=== PATIENT | female | born 1965 | race Caucasian/White ===

== ENCOUNTER → 2018-03-22 12:17 | Outpatient (CLI) | payer OTHER, SELFPAY ==
--- NOTE | 2018-03-22 | DI.MG.S_ITS ---
BILATERAL DIGITAL SCREENING MAMMOGRAM 3D/2D WITH CAD: 03/22/2018 CLINICAL: Routine screening. Comparison is made to exams dated: 02/04/2017 mammogram, 02/02/2016 mammogram - [facility], and 09/09/2012 mammogram - [facility]. The tissue of both breasts is predominantly fatty. Current study was also evaluated with a Computer Aided Detection (CAD) system. There is a benign biopsy clip in the left breast. No significant masses, calcifications, or other findings are seen in either breast. There has been no significant interval change. IMPRESSION: NEGATIVE There is no mammographic evidence of malignancy. A 1 year screening mammogram is recommended. This exam was interpreted at Station ID: [id number]. NOTE: For mammograms, a report in lay terms will be sent to the patient. Approximately 15% of breast malignancies will not be visualized mammographically. In the management of a palpable breast mass, a negative mammogram must not discourage biopsy of a clinically suspicious lesion. Electronically Signed By: Clare geiger/vish:03/22/2018 13:19:01 letter sent: Normal Exam ACR BI-RADS Category 1: Negative 3341F
== END ==
PROVIDERS: Family Provider Registered Nurse Women's Health Care, Ambulatory; PCP Family Medicine; Visit Provider Family Medicine
DX: Z12.31 Encounter for screening mammogram for malignant neoplasm of breast (principal)
CPT/HCPCS: 77063; 77067

== ENCOUNTER → 2018-09-15 07:31 | Outpatient (CLI) | payer OTHER, SELFPAY ==
[2018-09-15 08:54] LABS: Cholesterol 169 mg/dL (140-199); Glucose 121 mg/dL (70-100); HDL Cholesterol 46 mg/dL (40-60); LDL Cholesterol Calculated 89 mg/dL (<100); Triglycerides 168 mg/dL (35-150)
== END ==
PROVIDERS: Family Provider Registered Nurse Women's Health Care, Ambulatory; PCP Family Medicine; Visit Provider Family Medicine
DX: Z00.00 Encounter for general adult medical examination without abnormal findings (principal)
CPT/HCPCS: 36415; 80061; 82947

== ENCOUNTER → 2018-09-24 09:46 | Outpatient (CLI) | payer OTHER, SELFPAY ==
[2018-09-24 10:15] LABS: Add Manual Diff / Slide Review NO; Basophils Absolute Auto 0 /uL (0-100); Basophils Percent Auto 0.6 % (0-2); Eosinophils Absolute Auto 100 /uL (0-450); Hemoglobin 13.5 g/dL (12.0-16.0); Lymphocytes Absolute Auto 1800 /uL (1100-4500); Lymphocytes Percent Auto 23.7 % (25-40); Mean Corpuscular HGB Conc 33.8 % (30-36); Mean Corpuscular Hemoglobin 28.5 PG (26-34); Mean Corpuscular Volume 84.2 fL (80-100); Monocytes Absolute Auto 500 /uL (0-900); Monocytes Percent Auto 6.3 % (3-14); Neutrophils Absolute Auto 5000 /uL (1500-7000); Neutrophils Percent Auto 67.4 % (50-75); Platelet Count 235 X10^3/uL (150-400); Red Blood Cell Count 4.75 X10^6/uL (4.0-5.2); Red Cell Distribution Width 14.2 % (11.6-14.8); White Blood Cell Count 7.4 X10^3/uL (4.5-11.0)
[2018-09-24 10:33] LABS: Hemoglobin A1C% w Est Avg Glu 5.9 % (4.0-6.0)
== END ==
PROVIDERS: PCP Family Medicine; Visit Provider Family Medicine
DX: R53.83 Other fatigue (principal); R73.09 Other abnormal glucose
CPT/HCPCS: 36415; 83036; 85025

== ENCOUNTER → 2018-10-29 13:22 | Outpatient (CLI) | payer OTHER, SELFPAY ==
--- NOTE | 2018-10-29 15:37 | DIET.PN ---
Nutrition Initial Assessment:? ASSESS:???53 yoF referred for type pre-diabetes and PCOS. Presents frustrated with weight loss results with diets she has tried. States she has tried Jazlyn Omid, Weight Watchers, and low carb plans. She is concerned with trying fad or restrictive diets because she has to feed her family and needs energy for her job. 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 Reports recent foot pain which has resulted in an inability to continue Sheryl. Reports strong family hx of diabetes and heart disease. She is very eager to lose weight and motivated to see improved lab results for her overall health. ? LABS: Per pt report:? A1c: 5.9 ? MEDS:?? n/a ? DIET: Per 24-hour recall:? Regularly eats on the go bc of work schedule. ? Weight: 265 lb Ht:? 66 in BMI: 42.7 ? Exercise:? none at this time. NUTRITION DX 1. Altered Nutrition related labs related to impaired glucose metabolism, lack of previous exposure to accurate nutrition information as evidenced by pt report, dx of pre-diabetes/PCOS, previous diet high in refined carbohydrates, lack of physical activity.? INTERVENTION(s): 1. Discussed pathophysiology of diabetes/hyperglycemia and impact of nutrition/diet on blood sugar control.? 2. Discussed the effect of carbohydrates/protein/fat on blood sugar control.? Stressed importance of consistent carbohydrate intake at each meal and provided instructions for recommended servings/portions of carbohydrates/protein per meal. Provided pt with educational material. 3. Reviewed carbohydrate counting and measuring carbohydrate content via servings sizes and reading nutrition labels.? Provided handouts.?? 4. Discussed the difference between simple versus complex carbohydrates and the effect of fiber on blood sugar control.? Discussed various methods to increase fiber content in diet. 5. Stressed importance of meal timing and not going >4-5 hours between meals. Encouraged adding protein to snacks to support glucose control and prevent hunger. Discussed various snack options. 6. Discussed importance of food preparation to encourage healthy eating, portion control, and prevent hunger/over snacking. Compiled a list of grab and go foods for breakfast and snack ideas. 7. Discussed healthy weight loss goals of 1-2lbs per week through diet and exercise.? Pt agreeable to keeping a daily food record including portions. Goals: 1. Pt would like to lose 15 lbs (~5%) body weight in the next 1-2 months through dietary changes. 2. Pt agreed to keep a food record to discuss with RD at follow up appt. MONITOR/EVALUATE: Anticipate excellent compliance.? Nutrition follow-up scheduled for 3 weeks to review food record, monitor weight, and discuss healthy smoothie recipes and physical activity plan. Pt is checking with insurance to check for authorized number of visits.
== END ==
PROVIDERS: PCP Family Medicine; Visit Provider Family Medicine
DX: R73.03 Prediabetes (principal); E28.2 Polycystic ovarian syndrome
CPT/HCPCS: 97802

== ENCOUNTER → 2018-11-19 10:06 | Outpatient (CLI) | payer OTHER, SELFPAY ==
--- NOTE | 2018-11-19 11:15 | DIET.PN ---
Dietary Progress Note Assessment: Pt seen for 1 mo nutrition follow up for pre-diabetes/PCOS. Frustration remains with lack of weight loss. Admits she did not follow dietary restrictions as strictly as she was in [place] on vacations. She has been working on limiting portion sizes and food prepping. She has also been working on incorporating new recipes and lisa to replace starchy food items. Pt biggest concern is controlling blood sugar and inability to lose weight. HT: 66in WT: 266lb (no change) BMI: 42.7 Labs: A1c: 5.9 Nutrition Diagnosis: Altered nutrition related labs r/t impaired glucose metabolism aeb pt report, dx of pre-diabetes/PCOS, previous diet high in carbs, lack of PA. Interventions: 1. Reviewed dietary recall. 2. Reviewed carb counting and measuring macronutrients via serving sizes/food labes. 3. Recommended pt purchase glucometer. Discussed recommended pre/post prandial values. 4. Provided a list of breakfast smoothie recipes as well as a grocery shopping list for healthful food items to keep on hand. Goals: 1. Pt would like to lose 15lbs (~5%) body weight in 1-2 months through dietary changes. 2. Pt will purchase a glucometer and monitor BG 2-3x/wk alternating fasting and post-prandial BG. Monitoring/Evaluations: Nutrition follow up scheduled for 5 weeks to review food record, monitor weight and blood glucose record. Pt checking with insurance to check for authorized time frame for number of visits.
== END ==
PROVIDERS: PCP Family Medicine; Visit Provider Family Medicine
DX: E11.9 Type 2 diabetes mellitus without complications (principal)
CPT/HCPCS: 97803

== ENCOUNTER → 2019-01-21 09:53 | Outpatient (CLI) | payer OTHER, SELFPAY ==
--- NOTE | 2019-01-21 14:26 | DIET.PN ---
Dietary Progress Note Assessment: Pt seen for 2nd nutrition follow up for pre-diabetes/PCOS. She is again, frustrated she has not lost much weight. States she has had company and was out of town for another vacation. She is not monitoring her BG, but reports a few high BP recently which she has never had. I asked her how aggressively she has been following recommendations provided at previous appointments. She brought with her a recipe book following the DASH diet for HTN and states she is starting to follow the recipes. Reports she is feeling more support from her and daughter in making dietary changes and accepting new recipes. Admits to eating fast food while on the go at work. She discussed her feelings toward beginning an exercise program, but understands the importance of physical activity. HT: 66in WT: 264 BMI: 42.6 Labs: 5.9 Nutrition Diagnosis: Altered nutrition related labs r/t impaired glucose metabolism aeb pt report, dx or pre-diabetes/PCOS, previous diet high in carbs, lack of PA. Interventions: 1. Reviewed set backs to meeting weight loss goals and making dietary changes. 2. Discussed importance of high fiber and meal prep to avoid over consumption at meal time and grabbing fast food when hungry. 3. Discussed barriers to PA. Provided list of fitness facilities and sources of activity to increase weight loss and promote overall emotional/physical wellbeing. Monitoring/Evaluations: Pt will make arrangements to join a fitness facility and get involved in group classes. She will continue to monitor carb intake as well as sodium and sat fat. F/U scheduled for 1 mo.
== END ==
PROVIDERS: PCP Family Medicine; Visit Provider Family Medicine
DX: E28.2 Polycystic ovarian syndrome (principal); R73.03 Prediabetes
CPT/HCPCS: 97803

== ENCOUNTER → 2019-02-17 12:11 | Outpatient (CLI) | payer OTHER, SELFPAY ==
[2019-02-17 12:46] LABS: Hemoglobin A1C% w Est Avg Glu 5.8 % (4.0-6.0)
[2019-02-17 12:49] LABS: Blood Urea Nitrogen 12 mg/dL (7-17); Calcium 9.8 mg/dL (8.4-10.2); Carbon Dioxide 25 mmol/L (22-32); Chloride 103 mmol/L (98-107); Estimated Glomerular Filt Rate > 60.0 mL/min (>60); Glucose 108 mg/dL (70-100); HEMOLYSIS < 15 (0-50); Sodium 140 mmol/L (137-145)
== END ==
PROVIDERS: PCP Family Medicine; Visit Provider Family Medicine
DX: R73.03 Prediabetes (principal)
CPT/HCPCS: 36415; 80048; 83036

== ENCOUNTER → 2019-02-23 10:27 | Outpatient (CLI) | payer OTHER, SELFPAY ==
--- NOTE | 2019-02-23 10:29 | DI.US.S_ITS ---
PROCEDURE: US RENAL COMPLETE INDICATIONS: LEFT FLANK PAIN TECHNIQUE: Real-time scanning was performed of the kidneys and bladder, with image documentation. COMPARISON: None. FINDINGS: Kidneys: Kidneys are normal in size. Right kidney measures 11.4 cm long; left kidney measures 11.4 cm long. Right renal cortical thickness is 1.6 cm; left renal cortical thickness is 1.5 cm. Renal cortical echotexture is normal. No hydronephrosis. Bilateral nonobstructing renal calcifications, largest of the right measured 3.5 mm and 6.7 mm on the left. No suspicious solid mass lesions. Bladder: Pre-void bladder volume is 298 mL. Post-void residual is 0 mL. Pre-void images demonstrate no intraluminal masses or stones. On pre-void images, bilateral ureteral jets are noted with color Doppler interrogation. (Of note, ureteral jets may not be detectable in up to 25% of cases due to insufficient differences in specific gravity between ureteral and bladder urine). Miscellaneous: No free pelvic fluid. IMPRESSION: Nonobstructing bilateral renal calcifications. Dictated by: Mono Goldstein [facility] Interpreted: Med Araiza MD on 02/23/2019 at 16:46 Approved by: Med Araiza M.D. on 02/23/2019 at 17:07
== END ==
PROVIDERS: PCP Family Medicine; Visit Provider Family Medicine
DX: R10.9 Unspecified abdominal pain (principal); N20.0 Calculus of kidney
CPT/HCPCS: 76770

== ENCOUNTER → 2019-02-25 09:49 | Outpatient (CLI) | payer OTHER, SELFPAY ==
--- NOTE | 2019-02-25 11:18 | DIET.PN ---
Dietary Progress Note Assessment: Mrs. Guevara is a 53 yof seen for 3rd nutrition follow up for pre-diabetes w/ PCOS. She presents very optimistic with dietary changes since our last visit. She has consistently followed the DASH diet with continued support from her and daughter. She has started keeping unsalted fruit and nut mixes in her car to curb her appetite between work clients and to avoid turning to fast food. Mrs Guevara was recently diagnosed with kidney stones which she reports hx of in her 20's and 30's. She remains positive in that she is caring for health more consistently in making an appt with a food cart attendant, her primary provider, and having several tests done as preventative measures. Her weight continues to fluctuate +/- 1-2 lbs at each visit which she believes is related to pre-menopause and PCOS. Discussed changes in physical activity which she has not yet committed to. HT: 66in WT: 266 BMI: 42.7 Labs: A1c: 5.8 (down from 5.9) Nutrition Diagnosis: Altered nutrition related lab values r/t impaired glucose metabolism aeb pt report, dx of pre-diabetes,PCOS, previous diet high in carb, lack of PA. Interventions: 1. Reviewed meal intake. Praised pt on her reduced A1c and commitment to dietary changes. 2. Discussed importance of water intake in continued improvement in lab values, weight management, and reduced hunger. Discussed minimum of 64 oz per day. 3. Encouraged pt to join a fitness to center with classes to increase chances of engaging in regular physical activity. Discussed local facilities and classes available. Set a goal to join a facility in the next 2 weeks. Pt agreeable. 4. Pt agreed to try smoothie recipes provided at previous appointment. Discussed benefits and tips to creating healthful breakfasts in minimal time. Monitoring/Evaluations: F/u scheduled for 2 mo to monitor weight, food record, and feelings toward new physical activity plan.
== END ==
PROVIDERS: PCP Family Medicine; Visit Provider Family Medicine
DX: R73.03 Prediabetes (principal); E28.2 Polycystic ovarian syndrome; E66.9 Obesity, unspecified; Z68.41 Body mass index [BMI] 40.0-44.9, adult; Z71.3 Dietary counseling and surveillance
CPT/HCPCS: 97803

== ENCOUNTER → 2019-03-02 15:55 | Outpatient (ROUT) | payer OTHER, SELFPAY ==
[2019-03-05 16:00] LABS: Fecal Immunochemical Test NOT DETECTED (NOT DETECTED)
== END ==
PROVIDERS: PCP Family Medicine; Visit Provider Family Medicine
DX: Z12.11 Encounter for screening for malignant neoplasm of colon (principal)
CPT/HCPCS: 82274

== ENCOUNTER → 2019-03-25 15:03 | Outpatient (CLI) | payer OTHER, SELFPAY ==
--- NOTE | 2019-03-25 | DI.MG.S_ITS ---
BILATERAL DIGITAL SCREENING MAMMOGRAM 3D/2D WITH CAD: 03/25/2019 CLINICAL: Routine screening. Comparison is made to exams dated: 03/22/2018 mammogram, 02/04/2017 mammogram, and 02/02/2016 [facility]ogram [facility]. The tissue of both breasts is predominantly fatty. Current study was also evaluated with a Computer Aided Detection (CAD) system. There is a biopsy clip in the left breast. No significant masses, calcifications, or other findings are seen in either breast. There has been no significant interval change. IMPRESSION: NEGATIVE There is no mammographic evidence of malignancy. A 1 year screening mammogram is recommended. This exam was interpreted at Station ID: [id number]. NOTE: For mammograms, a report in lay terms will be sent to the patient. Approximately 15% of breast malignancies will not be visualized mammographically. In the management of a palpable breast mass, a negative mammogram must not discourage biopsy of a clinically suspicious lesion. Electronically Signed By: Sammy anderson/vish:03/25/2019 16:22:37 letter sent: Normal Exam ACR BI-RADS Category 1: Negative 3341F
== END ==
PROVIDERS: PCP Family Medicine; Visit Provider Family Medicine
DX: Z12.31 Encounter for screening mammogram for malignant neoplasm of breast (principal)
CPT/HCPCS: 77063; 77067

== ENCOUNTER → 2019-04-26 10:48 | Outpatient (CLI) | payer OTHER, SELFPAY ==
--- NOTE | 2019-04-26 10:53 | DI.RAD.S_ITS ---
PROCEDURE: XR CHEST 2V INDICATIONS: Substernal chest pain, upper back pain TECHNIQUE: 2 views of the chest were acquired. COMPARISON: None. FINDINGS: Surgical changes and devices: None. Lungs and pleura: Lungs are clear. No pleural effusions or pneumothorax. Mediastinum: Mediastinal contours are normal. Heart size is normal. Bones and chest wall: No suspicious bony abnormalities. Soft tissues appear unremarkable. IMPRESSION: 1. No acute cardiopulmonary disease. Dictated by: Geo Govea M.D. on 04/26/2019 at 10:16 Approved by: Geo Govea M.D. on 04/26/2019 at 10:16
[2019-04-26 12:17] LABS: Add Manual Diff / Slide Review NO; Basophils Absolute Auto 0 /uL (0-100); Basophils Percent Auto 0.5 % (0-2); Eosinophils Absolute Auto 0 /uL (0-450); Eosinophils Percent Auto 0.1 % (2-4); Hematocrit 40.6 % (36-46); Hemoglobin 13.9 g/dL (12.0-16.0); Lymphocytes Absolute Auto 1400 /uL (1100-4500); Lymphocytes Percent Auto 13.8 % (25-40); Mean Corpuscular HGB Conc 34.1 % (30-36); Mean Corpuscular Hemoglobin 28.5 PG (26-34); Mean Corpuscular Volume 83.5 fL (80-100); Monocytes Absolute Auto 500 /uL (0-900); Monocytes Percent Auto 4.6 % (3-14); Neutrophils Absolute Auto 8000 /uL (1500-7000); Platelet Count 275 X10^3/uL (150-400); Red Blood Cell Count 4.87 X10^6/uL (4.0-5.2); Red Cell Distribution Width 14.4 % (11.6-14.8); White Blood Cell Count 9.8 X10^3/uL (4.5-11.0)
[2019-04-26 12:21] LABS: Alanine Aminotransferase 34 IU/L (<35); Albumin 4.7 g/dL (3.5-5.0); Albumin Globulin Ratio 1.5 (1.0-2.8); Alkaline Phosphatase 93 U/L (38-126); Aspartate Aminotransferase 34 IU/L (14-36); BUN Creatinine Ratio 14.3 (6-22); Bilirubin Total 0.6 mg/dL (0.2-1.3); Blood Urea Nitrogen 10 mg/dL (7-17); Calcium 9.7 mg/dL (8.4-10.2); Carbon Dioxide 28 mmol/L (22-32); Chloride 103 mmol/L (98-107); Creatine Kinase 52 U/L (30-135); Estimated Glomerular Filt Rate > 60.0 mL/min (>60); Globulin 3.2 g/dL (1.7-4.1); Glucose 123 mg/dL (70-100); HEMOLYSIS < 15 (0-50); Sodium 139 mmol/L (137-145); Total Protein 7.9 g/dL (6.3-8.2)
[2019-04-26 12:32] LABS: Troponin I < 0.012 ng/mL (0.01-0.034)
== END ==
PROVIDERS: PCP Family Medicine; Visit Provider Nurse Practitioner
DX: R07.9 Chest pain, unspecified (principal)
CPT/HCPCS: 36415; 71046; 80053; 82550; 84484; 85025

== ENCOUNTER → 2020-04-25 16:57 | Outpatient (CLI) | payer OTHER, SELFPAY ==
--- NOTE | 2020-04-25 16:59 | DI.MG.S_ITS ---
BILATERAL DIGITAL SCREENING MAMMOGRAM 3D/2D WITH CAD: 04/25/2020 CLINICAL: Routine screening. Comparison is made to exams dated: 03/25/2019 mammogram, 03/22/2018 mammogram, and 02/04/2017 mammogram - [facility]. The tissue of both breasts is predominantly fatty. Current study was also evaluated with a Computer Aided Detection (CAD) system. There is a biopsy clip in the left breast. No significant masses, calcifications, or other findings are seen in either breast. There has been no significant interval change. IMPRESSION: NEGATIVE There is no mammographic evidence of malignancy. A 1 year screening mammogram is recommended. This exam was interpreted at Station ID: [id number]. NOTE: For mammograms, a report in lay terms will be sent to the patient. Approximately 15% of breast malignancies will not be visualized mammographically. In the management of a palpable breast mass, a negative mammogram must not discourage biopsy of a clinically suspicious lesion. Electronically Signed By: Sammy anderson/vish:04/25/2020 17:52:51 letter sent: Normal Exam ACR BI-RADS Category 1: Negative 3341F
== END ==
PROVIDERS: PCP Family Medicine; Referring Provider Family Medicine; Visit Provider Family Medicine
DX: Z12.31 Encounter for screening mammogram for malignant neoplasm of breast (principal)
CPT/HCPCS: 77063; 77067

== ENCOUNTER → 2021-05-02 10:49 | Outpatient (CLI) | payer OTHER, SELFPAY ==
--- NOTE | 2021-05-02 10:51 | DI.MG.S_ITS ---
BILATERAL DIGITAL SCREENING MAMMOGRAM 3D/2D WITH CAD: 05/02/2021 CLINICAL: Routine screening. Comparison is made to exams dated: 04/25/2020 mammogram, 03/25/2019 mammogram, and 03/22/2018 mammogram - [facility]. There are scattered fibroglandular elements in both breasts. Current study was also evaluated with a Computer Aided Detection (CAD) system. There is a biopsy clip in the left breast. No significant masses, calcifications, or other findings are seen in either breast. There has been no significant interval change. IMPRESSION: NEGATIVE There is no mammographic evidence of malignancy. A 1 year screening mammogram is recommended. This exam was interpreted at Station ID: [id number]. NOTE: For mammograms, a report in lay terms will be sent to the patient. Approximately 15% of breast malignancies will not be visualized mammographically. In the management of a palpable breast mass, a negative mammogram must not discourage biopsy of a clinically suspicious lesion. Electronically Signed By: Geo marques/vish:05/02/2021 11:17:57 letter sent: Normal Exam ACR BI-RADS Category 1: Negative 3341F
== END ==
PROVIDERS: PCP Family Medicine; Referring Provider Family Medicine; Visit Provider Family Medicine
DX: Z12.31 Encounter for screening mammogram for malignant neoplasm of breast (principal)
CPT/HCPCS: 77063; 77067

== ENCOUNTER → 2022-05-09 10:10 | Outpatient (CLI) | payer OTHER, SELFPAY ==
--- NOTE | 2022-05-09 | DI.MG.S_ITS ---
BILATERAL DIGITAL SCREENING MAMMOGRAM 3D/2D WITH CAD: 05/09/2022 CLINICAL: Routine screening. Comparison is made to exams dated: 05/02/2021 mammogram, 04/25/2020 mammogram, and 03/25/2019 mammogram - [facility]. There are scattered areas of fibroglandular density in both breasts (category b / 25%-50% glandular tissue). Current study was also evaluated with a Computer Aided Detection (CAD) system. There is a biopsy clip in the left breast. No significant masses, calcifications, or other findings are seen in either breast. There has been no significant interval change. IMPRESSION: NEGATIVE There is no mammographic evidence of malignancy. A 1 year screening mammogram is recommended. Based on the Tyrer Cuzick model (a risk assessment model) the patient's lifetime risk is 10.8% and her 10 year risk is 3.5%. According to the ACR, ACS, and NCCN guidelines, an annual breast MRI exam along with mammogram is recommended if the patient's lifetime risk is 20% or greater. This exam was interpreted at Station ID: [id number]. NOTE: For mammograms, a report in lay terms will be sent to the patient. Approximately 15% of breast malignancies will not be visualized mammographically. In the management of a palpable breast mass, a negative mammogram must not discourage biopsy of a clinically suspicious lesion. Electronically Signed By: George Anderosn M.D., jr/vish:05/09/2022 13:07:43 letter sent: Normal Exam ACR BI-RADS Category 1: Negative 3341F
== END ==
PROVIDERS: PCP Family Medicine; Referring Provider Family Medicine; Visit Provider Family Medicine
DX: Z12.31 Encounter for screening mammogram for malignant neoplasm of breast (principal)
CPT/HCPCS: 77063; 77067

== ENCOUNTER → 2022-08-17 07:27 | Outpatient (CLI) | payer OTHER, SELFPAY ==
[2022-08-17 09:40] LABS: Alanine Aminotransferase 31 IU/L (<35); Albumin 3.6 g/dL (3.5-5.0); Albumin Globulin Ratio 0.9 (1.0-2.8); Alkaline Phosphatase 81 U/L (38-126); Aspartate Aminotransferase 27 IU/L (14-36); BUN Creatinine Ratio 16.7 (6-22); Bilirubin Total 0.4 mg/dL (0.2-1.3); Blood Urea Nitrogen 15 mg/dL (7-17); Calcium 8.9 mg/dL (8.4-10.2); Carbon Dioxide 26 mmol/L (22-32); Chloride 103 mmol/L (98-107); Cholesterol 157 mg/dL (140-199); Estimated Glomerular Filt Rate > 60 mL/min (>60); Globulin 3.8 g/dL (1.7-4.1); Glucose 123 mg/dL (70-100); HDL Cholesterol 34 mg/dL (40-60); HEMOLYSIS < 15 (0-50); LDL Cholesterol Calculated 84 mg/dL (<100); Potassium 4.4 mmol/L (3.4-5.1); Sodium 138 mmol/L (137-145); Total Protein 7.4 g/dL (6.3-8.2); Triglycerides 195 mg/dL (35-150)
[2022-08-18 06:09] LABS: Labcorp Hemoglobin (Hb) A1c 6.5 % (4.8-5.6)
== END ==
PROVIDERS: PCP Family Medicine; Referring Provider Family Medicine; Visit Provider Family Medicine
DX: R73.03 Prediabetes (principal); E78.5 Hyperlipidemia, unspecified
CPT/HCPCS: 36415; 80053; 80061; 83036

== ENCOUNTER → 2022-08-24 10:33 | Outpatient (CLI) | payer OTHER, SELFPAY ==
[2022-08-24 11:26] LABS: Add Manual Diff / Slide Review NO; Basophils Absolute Auto 0 /uL (0-100); Basophils Percent Auto 0.4 % (0-2); Eosinophils Absolute Auto 200 /uL (0-450); Eosinophils Percent Auto 2.8 % (2-4); Hematocrit 36.1 % (36-46); Hemoglobin 12.3 g/dL (12.0-16.0); Lymphocytes Absolute Auto 1600 /uL (1100-4500); Mean Corpuscular HGB Conc 34.1 % (30-36); Mean Corpuscular Volume 85.1 fL (80-100); Monocytes Absolute Auto 500 /uL (0-900); Monocytes Percent Auto 9.6 % (3-14); Neutrophils Absolute Auto 3300 /uL (1500-7000); Neutrophils Percent Auto 58.2 % (50-75); Platelet Count 202 X10^3/uL (150-400); Red Blood Cell Count 4.24 X10^6/uL (4.0-5.2); Red Cell Distribution Width 14.8 % (11.6-14.8); White Blood Cell Count 5.6 X10^3/uL (4.5-11.0)
[2022-08-24 12:12] LABS: TSH w/ Reflex to FT4 3.41 uIU/mL (0.47-4.68)
== END ==
PROVIDERS: PCP Family Medicine; Referring Provider Family Medicine; Visit Provider Family Medicine
DX: R42 Dizziness and giddiness (principal)
CPT/HCPCS: 36415; 84443; 85025

== ENCOUNTER 2022-10-09 13:08 | Day surgery (SDC) | payer OTHER, SELFPAY ==
--- NOTE | 2022-10-09 | PATH_ITS ---
[facility] Accession Number: [id number] No. of containers..02 Tissue . 01 Material submitted: . PART A: gastrointestinal site - GASTRIC BIOPSY PART B: esophagus, E-G Junction - GE JUNCTION . 01 Diagnosis: A. Gastric, Biopsy: Gastric mucosa with mild chronic inflammation and focal intestinal metaplasia. No Helicobacter pylori organisms identified on immunohistochemical evaluation. No dysplasia or malignancy. . B. GE Junction, Biopsy: Squamous mucosa with changes consistent with reflux. No fungal organisms identified on H/E slide. No dysplasia or malignancy identified. [facility] 10/15/2022 1134 Local . 01 Electronically signed: . Carrol Anderson MD, Pathologist NPI- [id number] . 01 Gross description: . Part A: GASTRIC BIOPSY: Received in formalin is 1 fragment(s) of nayak, soft tissue measuring 0.4 x 0.2 x 0.2 cm submitted entirely in 1 cassette(s) Part B: GE JUNCTION : Received in formalin is 1 fragment(s) of nayak, soft tissue measuring 0.2 x 0.1 x 0.1 cm submitted entirely in 1 cassette(s) /[facility] 10/10/2022 2309 Local . 01 Microscopic: . A. An immunohistochemical stain was performed to evaluate for Helicobacter organisms and is negative. The control stain showed appropriate reactivity. . . * This test was developed and its performance characteristics determined by [facility]. It has not been cleared or approved by the U.S. Food and Drug Administration. The FDA has determined that such clearance or approval is not necessary. This test is used for clinical purposes. It should not be regarded as investigational or for research. . 01 Pathologist provided ICD-10: K29.70, K21.00 . 01 CPT . 769564, 726891, [id number] Specimen Comment: A courtesy copy of this report has been sent to [phone] Performed at: 01 [facility] [address] [place] [address], [place], [place] [id number] MD Geo Patel MD Phone: [phone]
[2022-10-09] MEDS: LACTATED RINGERS 1,000 ML 200 ML IV (13:28)
[2022-10-09 13:46] VITALS: BP 137/78; PULSE 94; RESP 18; TEMP 37.1; O2SAT 96; BMI 43.9
--- NOTE | 2022-10-09 14:17 | PM.PREOP ---
Pre-operative Note Interval Note History & Physical reviewed/Exam performed by Physician: Yes Changes to H&P: No
--- NOTE | 2022-10-09 14:51 | PM.OP.EC ---
Operative Date/Time/Diagnoses Date of procedure: 10/09/22 Time of procedure: 14:51 Pre-op diagnosis: Esophageal dysphagia, colorectal screening Post-op diagnosis: other (Gastritis, esophagitis) Procedure & Clinicians Study performed: Esophagoduodenoscopy and colonoscopy Same procedure as scheduled: Yes Indications: 57-year-old woman with esophageal dysphagia here for diagnostic esophagoduodenoscopy and screening colonoscopy. Surgeon: Rickey Espinoza Procedure Notes Procedure in detail: The history and physical was performed/updated and the patient is ASA class is 3. The procedure was discussed in detail with the patient. Potential risks complications including infection, bleeding, missed diagnosis, perforation, need for surgery, and were explained. Their questions were answered and informed consent was obtained. Patient placed in left lateral decubitus position. Time out was performed. Procedural sedation was administered by Anesthesia. A bite block was placed. the scope was inserted into the mouth and advanced through the esophagus and into the stomach. The stomach was without masses. The antrum of the stomach was significant for linear ulcerations. Biopsy of the stomach was performed with forceps.. The pylorus was intubated and the duodenum was normal to the 2nd portion. The scope was retroflexed within the stomach and there was a small hiatal hernia. The scope was withdrawn into the esophagus the Z line was seen at 3 38 cm from the incisions. No tyler Grant's or esophageal stricture. The esophagus was mildly inflamed at its distal portion and biopsies were taken of the GE junction. Examination began with a thorough inspection of the perianal area there was no evidence of fissures, fistulae, external hemorrhoids or cutaneous malignancy. The colonoscopy scope was then placed into the anal canal and was advanced to the cecum, which was identified by the ileocecal valve, the appendiceal orifice and the confluence of the taenia. The scope was then slowly withdrawn examining colon thoroughly in all directions, irrigating it of any residual stool. Colon was without masses polyps. Retroflexion within the rectum demonstrated grade 1 internal hemorrhoids not large enough for hemorrhoidal banding The patient tolerated the procedure well. They will be discharged once criteria are met. The prep was of good/excellent quality. The withdrawl time was 6 minutes. Specimen(s): other (GE junction, gastric) Impression: Gastritis, esophagitis Post-procedure Recommendations: Colonscopy in 10 years Plan for aftercare: Omeprazole 20 mg twice daily. Discontinue Prilosec. Will notify with biopsy findings. Disposition: same day surgery
[2022-10-09 14:54] VITALS: BP 113/74; PULSE 78; RESP 20; TEMP 36.2; O2SAT 95
[2022-10-09 14:59] VITALS: BP 111/70; PULSE 87; RESP 19; O2SAT 97
[2022-10-09 15:05] VITALS: BP 112/70; PULSE 82; RESP 16; O2SAT 97
[2022-10-09 15:09] VITALS: BP 113/70; PULSE 70; RESP 15; O2SAT 96
== END 2022-10-09 15:36 | disposition home or self-care (01) ==
PROVIDERS: PCP Family Medicine; Referring Provider Surgery; Visit Provider Surgery
PROC: 0DJ08ZZ Inspection of Upper Intestinal Tract, Via Natural or Artificial Opening Endoscopic (ICD-10-PCS; CPT 43235; principal; 2022-10-09 14:30)
PROC: 0DJD8ZZ Inspection of Lower Intestinal Tract, Via Natural or Artificial Opening Endoscopic (ICD-10-PCS; CPT 45378; 2022-10-09 14:30)
DX: Z12.11 Encounter for screening for malignant neoplasm of colon (principal); K21.00 Gastro-esophageal reflux disease with esophagitis, without bleeding; E11.9 Type 2 diabetes mellitus without complications; Z79.84 Long term (current) use of oral hypoglycemic drugs; K64.0 First degree hemorrhoids; K44.9 Diaphragmatic hernia without obstruction or gangrene; K29.50 Unspecified chronic gastritis without bleeding
CPT/HCPCS: 45378; 43239; J2704

== ENCOUNTER → 2022-10-11 09:32 | Outpatient (CLI) | payer OTHER, SELFPAY | PROVIDERS: PCP Family Medicine; Referring Provider Family Medicine; Visit Provider Family Medicine | DX: R00.2 Palpitations (principal); M54.9 Dorsalgia, unspecified | CPT/HCPCS: 87086; 93246 ==

== ENCOUNTER → 2022-10-11 15:06 | Outpatient (CLI) | payer OTHER, SELFPAY | PROVIDERS: PCP Family Medicine; Visit Provider Nurse Practitioner Family | DX: M54.9 Dorsalgia, unspecified (principal) | CPT/HCPCS: 87086 ==

== ENCOUNTER → 2022-11-15 12:23 | Outpatient (CLI) | payer OTHER, SELFPAY ==
[2022-11-15 16:17] LABS: Creatinine Urine Random 177.1 mg/dL
[2022-11-15 16:22] LABS: Microalbumi Creatinin Ratio Ur 6.7 ug/mg CR (<30); Microalbumin Urine Random 1.2 mg/dL (0-1.6)
[2022-11-16 06:35] LABS: Labcorp Hemoglobin (Hb) A1c 6.6 % (4.8-5.6)
== END ==
PROVIDERS: PCP Family Medicine; Referring Provider Family Medicine; Visit Provider Family Medicine
DX: E11.9 Type 2 diabetes mellitus without complications (principal); I10 Essential (primary) hypertension
CPT/HCPCS: 36415; 82043; 82570; 83036

== ENCOUNTER → 2022-12-03 07:42 | Outpatient (CLI) | payer OTHER, SELFPAY ==
--- NOTE | 2022-12-03 07:43 | DI.US.S_ITS ---
PROCEDURE: US PELVIC COMPLETE INDICATIONS: LOWER ABDOMINAL PAIN TECHNIQUE: Real-time scanning was performed of the pelvic organs, with image documentation. Additional endovaginal scanning was necessary due to incomplete visualization of the adnexal and endometrial structures by transabdominal scanning. COMPARISON: None. FINDINGS: Uterus: Uterus is anteverted and normal in size at 7.0 x 3.4 x 4.9 cm. The myometrium is homogeneous. The endometrium measures 3.4 mm combined thickness. Ovaries: The right ovary measures 1.4 x 1.2 x 1.5 cm, with a calculated ovarian volume of 1 cc. The left ovary measures 2.0 x 1.5 x 1.9 cm, with a calculated ovarian volume of 3 cc. The ovaries have a normal sonographic appearance. Less than 12 follicles can be seen in each ovary. No adnexal masses are seen. Other: No pathologic free abdominal or pelvic fluid. IMPRESSION: Endometrial stripe measures 3.4 millimeters, within normal limits for age. Otherwise, no abnormality. We strive to produce accurate, complete, and clear reports of imaging services. To assist us in improving patient care, this report was composed using standard report templates and voice recognition software. Therefore, it may contain abnormal punctuation, insertions and/or omissions. Occasional wrong-word or sound-alike substitutions may occur. Though we review the report and make efforts to correct it, we do recommend that the report be read carefully in proper context to recognize any text inaccuracies. Dictated by: Kirk Anne M.D. on 12/03/2022 at 9:12 Approved by: Kirk Anne M.D. on 12/03/2022 at 9:15
== END ==
PROVIDERS: PCP Family Medicine; Referring Provider Family Medicine; Visit Provider Family Medicine
DX: R10.30 Lower abdominal pain, unspecified (principal)
CPT/HCPCS: 76830; 76856; 93975

== ENCOUNTER → 2023-03-28 14:13 | Outpatient (CLI) | payer OTHER, SELFPAY ==
--- NOTE | 2023-03-28 14:17 | DI.RAD.S_ITS ---
PROCEDURE: XR CHEST 2V INDICATIONS: Shortness of breath TECHNIQUE: 2 views of the chest were acquired. COMPARISON: [facility], CR, XR CHEST 2V, 04/26/2019, 10:50. FINDINGS: Surgical changes and devices: None. Lungs and pleura: Lungs are clear. No pleural effusions or pneumothorax. Mediastinum: Mediastinal contours are normal. Heart size is normal. Bones and chest wall: No suspicious bony abnormalities. Soft tissues appear unremarkable. IMPRESSION: No acute cardiopulmonary abnormality is seen. Dictated by: Shoshana Reynolds MD, PhD on 03/28/2023 at 14:36 Approved by: Shoshana Reynolds MD, PhD on 03/28/2023 at 14:39
== END ==
PROVIDERS: PCP Family Medicine; Referring Provider Nurse Practitioner Family; Visit Provider Nurse Practitioner Family
DX: R06.02 Shortness of breath (principal)
CPT/HCPCS: 71046

== ENCOUNTER → 2023-04-10 15:16 | Outpatient (CLI) | payer OTHER, SELFPAY ==
--- NOTE | 2023-04-10 15:28 | DI.RAD.S_ITS ---
PROCEDURE: XR HIP W PEL IF DONE BILAT 2V INDICATIONS: hip pain TECHNIQUE: AP pelvis with lateral view(s) of the bilateral hip(s). COMPARISON: [facility], , [id number] W PEL IF PERFORMED, 08/22/2015, 16:21. FINDINGS: Bones: No acute fracture or dislocation. Mild, bilateral, left slightly worse than right, femoroacetabular joint space loss. Slight left-sided acetabular spurring. No suspicious bone lesions. Soft tissues: The visualized bowel gas pattern is normal. No suspicious soft tissue calcifications. IMPRESSION: 1. Mildly asymmetric, left greater than right mild arthritic changes in the hip joints. Dictated by: Jing Vazquez M.D. on 04/10/2023 at 17:46 Approved by: Jing Vazquez M.D. on 04/10/2023 at 17:47
== END ==
PROVIDERS: PCP Family Medicine; Referring Provider Family Medicine; Visit Provider Family Medicine
DX: M25.551 Pain in right hip (principal); M25.552 Pain in left hip
CPT/HCPCS: 73521

== ENCOUNTER 2023-04-29 12:16 | Emergency (ER) | payer OTHER, SELFPAY ==
[2023-04-29] VITALS (26 sets, daily range): BP systolic 132–186; BP diastolic 60–91; PULSE 79–110; RESP 16–25; TEMP 36.3–36.9; O2SAT 91–97; BMI 44.5
--- NOTE | 2023-04-29 13:04 | ED.SOB ---
HPI - SOB/Dyspnea General Chief Complaint: Shortness of Breath/Dyspnea Stated Complaint: trouble walking, sob; dr referred Time Seen by Provider: 04/29/23 12:41 Source: patient Mode of arrival: Ambulatory History of Present Illness HPI Narrative: Patient with underlying bilateral hip pain over the past 6-8 weeks gradually worsening comes to the ED because of her concern of associated shortness of breath which has developed over the past 2 or 3 weeks. She notes fairly dramatic breathlessness and some chest tightness with only modest exertion. She says climbing a flight of stairs or walking any distance at an airport causes profound dyspnea to the point where she had to use a wheelchair recently at an airport. She does not feel particularly breathless when she is not exerting herself. This degree of dyspnea with exertion his profoundly different from her experience of her past years. She has no known coronary disease but her father had early coronary disease. She has no known pulmonary disease but her mother had pulmonary hypertension. Both parents are . She does not smoke cigarettes nor does she drink alcohol frequently. She has no infectious symptoms though about 4 weeks ago she had a profound event lasting about 10-60 minutes where she had a wave of pain or flushing which started at the top of her head and went all the way down to her toes and caused significant headache and panic and vomiting. She says she is had 4 or so additional episodes throughout her life but these are very unusual events. She has seen her primary care doctor for these symptoms who has ordered plain images of the hips. Also echocardiography and stress test are in the plans moving forward. She is feeling very anxious about the symptoms and is concerned that they may represent an imminently dangerous condition perhaps associated with her hip pain. She has no specific arthritis diagnosis. She has no trauma associated with the increasing hip pain. Related Data Previous Rx's Medication Instructions Recorded nitroglycerin 0.4 % (w/w) rectal 1 inch IN BID #30 grams 09/19/18 ointment albuterol sulfate 90 mcg/actuation 2 puff inhalation Q6H PRN 09/28/19 aerosol inhaler (ProAir HFA) shortness of breath or wheezing #8.5 grams levocetirizine 5 mg tablet See Rx Instructions .Route 08/24/22 .COMPLEX #90 tabs escitalopram oxalate 10 mg tablet See Rx Instructions .Route 07/12/23 .COMPLEX #90 tabs lorazepam 0.5 mg tablet 0.5 mg PO BID PRN anxiety #30 tabs 11/21/22 metformin 1,000 mg tablet 1,000 mg PO BID #180 tabs 11/21/22 omeprazole 20 mg capsule,delayed 20 mg PO DAILY #90 caps 11/21/22 release Allergies Allergy/AdvReac Type Severity Reaction Status Date / Time No Known Drug Allergies Allergy Verified 04/29/23 12:19 Patient History Medical History Pre-diabetes Type 2 diabetes mellitus Surgical History History of tonsillectomy Family History Father Heart disease Grandfather Stroke Mother Hypertension Pulmonary hypertension Grandfather Cancer Grandmother Cancer Social History household members: spouse Smoking Status: Never smoker alcohol intake: current Smoking Status: Never smoker alcohol intake frequency: a few times a week Substance Use Type: does not use Exam Narrative Exam Narrative: GENERAL: Alert, cooperative and in no distress. HEAD: Atraumatic. Normocephalic. EYES: Sclera are clear without icterus. Extraocular movements are full. ENT: No rhinorrhea. Oropharynx is moist. Mouth exam is benign. NECK: Supple. Full range of motion. CARDIOVASCULAR: Elevated rate and rhythm without murmur gallop or rub. RESPIRATORY: Clear to auscultation. Breath sounds equal bilaterally. No wheezes, rales, or rhonchi. GASTROINTESTINAL: Abdomen soft, non-tender, nondistended. EXTREMITIES: No edema, full range of motion. No obvious trauma. Full range of motion of the hips and knees without pain. BACK: Normal inspection, no CVA tenderness. NEURO: Nonfocal examination, normal speech SKIN: No rash or erythema of visible areas PSYCH: Normally oriented. Normal range of affect. Appropriate behavior Initial Vital Signs Initial Vital Signs: Vital Signs Temperature 97.3 F L 04/29/23 12:19 Pulse Rate 95 H 04/29/23 12:19 Respiratory Rate 20 04/29/23 12:19 Blood Pressure 186/91 H 04/29/23 12:19 Pulse Oximetry 96 04/29/23 12:19 Oxygen Delivery Method Room Air 04/29/23 12:19 Course Orders Ordered: ED Orders 04/29/23 13:09 EKG-12 Lead Stat 04/29/23 13:25 BNP [NT-proBNP (BNP-Adult 18+)] Stat CMP [Comprehensive Metabolic Panel] Stat CRP [C-Reactive Protein Quant] Stat Procalcitonin Stat Troponin I Stat 04/29/23 14:00 CBC Auto Diff [Complete Blood Count AUTO DIFF] Stat D Dimer Stat Packed Cells Stat Type and Screen Stat 04/29/23 14:23 CT angio chest PE protocol Stat 04/29/23 14:24 CT abdomen pelvis w con Stat 04/29/23 15:10 Urine Microscopic Stat Discontinued Medications Ondansetron HCl (Ondansetron 4 Mg/2 Ml Inj) 4 mg IV NOW ONE Stop: 04/29/23 15:11 Last Admin: 04/29/23 15:13 Dose: 4 mg Documented By: MIKE Vital Signs Vital signs: Vital Signs - 8 hr 04/29/23 12:19 04/29/23 12:37 04/29/23 13:00 Temperature 97.3 F L Pulse Rate 95 H 98 H 91 H Respiratory Rate 20 24 Blood Pressure 186/91 H Pulse Oximetry 96 95 Oxygen Delivery Method Room Air 04/29/23 13:14 04/29/23 13:14 04/29/23 13:30 Temperature Pulse Rate 86 Respiratory Rate 21 Blood Pressure 146/75 H 156/76 H Pulse Oximetry 96 Oxygen Delivery Method 04/29/23 13:30 04/29/23 14:00 04/29/23 14:00 Temperature Pulse Rate 84 83 Respiratory Rate 19 16 Blood Pressure 148/78 H Pulse Oximetry 95 96 Oxygen Delivery Method Room Air 04/29/23 14:30 04/29/23 14:30 04/29/23 15:00 Temperature Pulse Rate 91 H 110 H Respiratory Rate 25 H Blood Pressure 158/75 H Pulse Oximetry 97 Oxygen Delivery Method 04/29/23 15:30 04/29/23 15:34 04/29/23 15:34 Temperature Pulse Rate 82 84 Respiratory Rate 19 24 Blood Pressure 156/70 H Pulse Oximetry 93 95 Oxygen Delivery Method 04/29/23 15:49 04/29/23 16:09 Temperature 98.2 F 98.0 F Pulse Rate 86 84 Respiratory Rate 18 18 Blood Pressure 149/83 H 132/60 Pulse Oximetry Oxygen Delivery Method MDM - SOB/Dyspnea Lab Data 04/29/23 14:00 04/29/23 13:25 Labs: Lab Results 04/29/23 04/29/23 04/29/23 Range/Units 13:25 14:00 15:10 WBC 4.6 (4.5-11.0) X10^3/uL RBC 2.06 L (4.0-5.2) X10^6/uL Hgb 6.1 L* (12.0-16.0) g/dL Hct 18.2 L* (36-46) % MCV 88.4 (80-100) fL MCH 29.7 (26-34) PG MCHC 33.6 (30-36) % RDW 22.9 H (11.6-14.8) % Plt Count 111 L (150-400) X10^3/uL Neut % (Auto) 55.0 (50-75) % Lymph % (Auto) 35.9 (25-40) % Barber % (Auto) 7.2 (3-14) % Eos % (Auto) 1.5 L (2-4) % Baso % (Auto) 0.4 (0-2) % Neut # (Auto) 2500 (7787-6939) /uL Lymph # (Auto) 1700 (5173-7494) /uL Barber # (Auto) 300 (0-900) /uL Eos # (Auto) 100 (0-450) /uL Baso # (Auto) 0 (0-100) /uL Platelet Estimate Decreased on smear RBC Morphology See below Anisocytosis 2+ H Microcytosis 2+ H Macrocytosis 1+ H D-Dimer 794 H (<500) ng/ml Sodium 138 (137-145) mmol/L Potassium 4.3 (3.4-5.1) mmol/L Chloride 102 (98-107) mmol/L Carbon Dioxide 23 (22-32) mmol/L BUN 16 (7-17) mg/dL Creatinine 1.32 H (0.52-1.04) mg/dL Estimated GFR 47 L (>60) mL/min BUN/Creatinine Ratio 12.1 (6-22) Glucose 149 H (70-100) mg/dL Calcium 10.8 H (8.4-10.2) mg/dL Total Bilirubin 0.7 (0.2-1.3) mg/dL AST 115 H (14-36) IU/L ALT 197 H (<35) IU/L Alkaline Phosphatase 80 (38-126) U/L Troponin I < 0.012 (0.01-0.034) ng/mL C-Reactive Protein 1.4 H (<1.0) mg/dL NT-Pro-B Natriuret Pep 3000 H (<125) pg/mL Total Protein 10.9 H (6.3-8.2) g/dL Albumin 3.5 (3.5-5.0) g/dL Globulin 7.4 H (1.7-4.1) g/dL Albumin/Globulin Ratio 0.5 L (1.0-2.8) Procalcitonin 0.19 (<0.5) ng/mL Urine RBC 0-1/hpf (0-5/HPF) Urine WBC 0-1/hpf (0-5/HPF) Ur Squamous Epith Cells 0-1 /hpf (0-5/HPF) Urine Bacteria None seen (None) Hyaline Casts 0-1/lpf (None) Ur Culture Indicated? Cult not indicated Blood Type O Positive Antibody Screen Negative Crossmatch See Detail Urine Dip Bedside Urine Glucose Negative Bedside Urine Bilirubin - Negative Bedside Urine Ketone - Negative Urine Specific [place] 1.025 Bedside Urine Occult Blood - Negative Bedside Urine pH 6.0 Bedside Urine Protein ++ 100 Bedside Urine Urobilinogen - Negative Bedside Urine Nitrite - Negative Bedside Urine Leukocytes - Negative Esterase ECG Data Interpretation: ECG obtained at 1323 shows sinus rhythm at 89 beats per minute. QTC is 430. This ECG is normal. [facility] Narrative Medical decision making narrative: Patient with a unusual presentation of 6 or more weeks of increasing hip pain with negative x-rays. No trauma history also coincident with 2 or 3 weeks of worsening shortness of breath with exertion. Much more so recently. Vague chest pressure with the dyspnea but at other times no chest pain per se. She does not smoke cigarettes or have hypertension but she does have diabetes and an early family history of coronary disease and also family history of pulmonary disease. She has elevated blood pressure here today. My suspicion for pulmonary embolism is low but I will check a D-dimer to corroborate this suspicion. We will do chest imaging pending the D-dimer result. I do not think new hip imaging is warranted at the moment. We will also check inflammatory markers. We will also check cardiac markers as well and evidence of congestive heart failure by checking a BNP. Clinically she is not volume overloaded. She does have a resting heart rate in the 90s which to me seems abnormal as well. 1433 H&H are very low. Fortunately, she had a recent colonoscopy within the past 5 or 6 months which was reassuring. Platelet count is slightly depressed but she has normal white cells. Liver function tests are slightly abnormal. D-dimer is elevated, BNP is elevated. We will do chest abdomen pelvis CT looking for bleeding source or other neoplastic etiology or pulmonary emboli. Pulmonary emboli of course would not explain the severe anemia but given the elevated D-dimer and breathlessness I want to be thorough about this. Did do a rectal exam just now which is scant brown stool that is faintly guaiac positive. I did review her history with her and she is no longer menstruating. She has had no hematemesis or hematuria or hematochezia that she is aware of. 1614 2 units of red cells are being transfused. I think it is very likely that the blood loss is the cause of the vast majority of her symptoms. We will discuss the case with Dr. Jackson about outpatient follow-up from this point forward. After transfusion of 2 units will discharge the patient home for close outpatient follow-up. Discharge Plan Departure Patient Disposition: Home Clinical Impression: Severe anemia Activity Restrictions/Additional Instructions: The severe anemia you are suffering from that we discovered is almost certainly the cause of the majority of the symptoms you have been experiencing. Further investigation may be required to make sure of this. You also will need further investigation to discover the source of your blood loss. It is very reassuring that you had normal upper endoscopy and colonoscopy recently. Follow-up with Dr. Jackson in the coming days for ongoing evaluation. Please return to the ED for severe symptoms such as repeated vomiting. Obvious blood loss. High fever or severe pain. Thank you for trusting us with your care today and I hope you feel better soon. Prescriptions: No Action nitroglycerin 0.4 % (w/w) ointment 1 inch IN BID Qty: 30 2RF levocetirizine 5 mg tablet See Rx Instructions .ROUTE .COMPLEX Qty: 90 2RF Dose Instruction: TAKE 1 TABLET BY MOUTH DAILY Rx Instructions: TAKE 1 TABLET BY MOUTH DAILY omeprazole 20 mg capsule,delayed release(DR/EC) 20 mg PO DAILY Qty: 90 3RF escitalopram oxalate 10 mg tablet See Rx Instructions .ROUTE .COMPLEX Qty: 90 3RF Dose Instruction: TAKE 1 AND 1/2 TABLETS BY MOUTH EVERY DAY Rx Instructions: TAKE 1 Tab daily lorazepam 0.5 mg tablet 0.5 mg PO BID PRN (Reason: anxiety) Qty: 30 0RF metformin 1,000 mg tablet 1,000 mg PO BID Qty: 180 3RF albuterol sulfate [ProAir HFA] 90 mcg/actuation HFA aerosol inhaler 2 puff INHALATION Q6H PRN (Reason: shortness of breath or wheezing) Qty: 8.5 0RF Referrals: Karen Jackson MD [Primary Care Provider] - Stand Alone Forms: Patient Portal/API
[2023-04-29 13:49] LABS: Alanine Aminotransferase 197 IU/L (<35); Albumin 3.5 g/dL (3.5-5.0); Albumin Globulin Ratio 0.5 (1.0-2.8); Alkaline Phosphatase 80 U/L (38-126); Aspartate Aminotransferase 115 IU/L (14-36); BUN Creatinine Ratio 12.1 (6-22); Bilirubin Total 0.7 mg/dL (0.2-1.3); Blood Urea Nitrogen 16 mg/dL (7-17); C-Reactive Protein Quant 1.4 mg/dL (<1.0); Calcium 10.8 mg/dL (8.4-10.2); Carbon Dioxide 23 mmol/L (22-32); Chloride 102 mmol/L (98-107); Estimated Glomerular Filt Rate 47 mL/min (>60); Globulin 7.4 g/dL (1.7-4.1); Glucose 149 mg/dL (70-100); HEMOLYSIS < 15 (0-50); Potassium 4.3 mmol/L (3.4-5.1); Sodium 138 mmol/L (137-145); Total Protein 10.9 g/dL (6.3-8.2)
[2023-04-29 13:59] LABS: NT-proBNP (BNP-Adult 18+) 3000 pg/mL (<125); Troponin I < 0.012 ng/mL (0.01-0.034)
[2023-04-29 14:04] LABS: Procalcitonin 0.19 ng/mL (<0.5)
[2023-04-29 14:16] LABS: Add Manual Diff / Slide Review NO; Basophils Absolute Auto 0 /uL (0-100); Basophils Percent Auto 0.4 % (0-2); Eosinophils Absolute Auto 100 /uL (0-450); Eosinophils Percent Auto 1.5 % (2-4); Hematocrit 18.2 % (36-46); Lymphocytes Absolute Auto 1700 /uL (1100-4500); Lymphocytes Percent Auto 35.9 % (25-40); Mean Corpuscular HGB Conc 33.6 % (30-36); Mean Corpuscular Hemoglobin 29.7 PG (26-34); Mean Corpuscular Volume 88.4 fL (80-100); Monocytes Absolute Auto 300 /uL (0-900); Monocytes Percent Auto 7.2 % (3-14); Neutrophils Absolute Auto 2500 /uL (1500-7000); Platelet Count 111 X10^3/uL (150-400); Red Blood Cell Count 2.06 X10^6/uL (4.0-5.2); Red Cell Distribution Width 22.9 % (11.6-14.8); White Blood Cell Count 4.6 X10^3/uL (4.5-11.0)
[2023-04-29 14:17] LABS: D Dimer 794 ng/ml (<500)
[2023-04-29 14:18] LABS: Hemoglobin 6.1 g/dL (12.0-16.0)
--- NOTE | 2023-04-29 14:23 | DI.CT.S_ITS ---
PROCEDURE: CT ANGIO CHEST PE PROTOCOL INDICATIONS: dyspnea TECHNIQUE: After the administration of intravenous contrast, 2 mm thick sections acquired from the pulmonary apices to the posterior costophrenic angles. 3-dimensional maximum intensity projection (MIP) coronal and sagittal reformats were then acquired through the thorax. For radiation dose reduction, the following was used: automated exposure control, adjustment of mA and/or kV according to patient size. COMPARISON: None. FINDINGS: Image quality: Diagnostic. Pulmonary arteries: Pulmonary arteries are normal in size, and demonstrate no intraluminal filling defects to suggest central pulmonary embolism. The main pulmonary artery is at the upper limits of normal measuring 2.9 centimeters. Lungs and pleura: Lungs are clear. Mild linear atelectasis versus scarring at the bases. No pleural effusions or pneumothorax. Central and peripheral airways are patent. Mediastinum: Heart size is normal, without pericardial effusion. Prominent mediastinal and hilar lymph nodes are nonspecific. Thoracic aorta is normal in caliber and enhancement with minimal atherosclerosis. Esophagus is normal in caliber, with small hiatal hernia. Bones and chest wall: No suspicious bony lesions. Chronic appearing left lateral 3rd rib fracture. Ribs and thoracic spine appear intact throughout. No axillary or supraclavicular adenopathy. No thyroid nodules which require sonographic follow up, per consensus guidelines. Upper Abdomen: Please see separately dictated CT of the abdomen and pelvis. IMPRESSION: No pulmonary embolus. No acute cardiopulmonary process. Prominent mediastinal and hilar lymph nodes are nonspecific and may be reactive. Dictated by: Ruben Olson M.D. on 04/29/2023 at 15:35 Approved by: Ruben Olson M.D. on 04/29/2023 at 15:41
--- NOTE | 2023-04-29 14:24 | DI.CT.S_ITS ---
PROCEDURE: CT ABDOMEN PELVIS W CON INDICATIONS: severe anemia TECHNIQUE: After the administration of intravenous contrast, axial sections acquired from the lung bases to the pubic symphysis. Coronal and sagittal reformats were performed. For radiation dose reduction, the following was used: automated exposure control, adjustment of mA and/or kV according to patient size. COMPARISON: None. FINDINGS: Image quality: Excellent. Lung bases: Please refer to separately dictated CT of the chest from the same day. ABDOMEN: Liver: Unremarkable. Gallbladder: Unremarkable. Biliary ducts: Unremarkable. Pancreas: Unremarkable. Spleen: Unremarkable. Adrenal Glands: Unremarkable. Kidneys and Ureters: Unremarkable. Stomach and Bowel: Stomach, small bowel loops, and colon are unremarkable. Few colonic diverticula without evidence of diverticulitis. Normal appendix. Peritoneum: No abnormal intraperitoneal fluid. No free air. Ventral Wall: No hernias. Abdominal Nodes: No retroperitoneal or mesenteric adenopathy by size criteria. Vessels: Aorta and inferior vena cava are normal in size. Mild atherosclerosis. PELVIS: Pelvic Organs: Unremarkable. Bladder: Unremarkable. Pelvic Nodes: No enlarged lymph nodes. Miscellaneous: No hernias are seen. Bones: Mild degenerative changes of the spine. IMPRESSION: 1. No acute findings within the abdomen or pelvis. 2. Diverticulosis without evidence of acute diverticulitis. Dictated by: Ruben Olson M.D. on 04/29/2023 at 15:41 Approved by: Ruben Olson M.D. on 04/29/2023 at 15:45
[2023-04-29 14:53] LABS: Anisocytosis 2+; Macrocytosis 1+; Microcytosis 2+; Platelet Estimate Decreased on smear
[2023-04-29] MEDS: ONDANSETRON 4 MG/2 ML INJ IV ×2 (15:13→18:37)
[2023-04-29 15:48] LABS: Bacteria Urine None Seen; Culture Indicated Urine Cult Not Indicated; Hyaline Casts Urine 0-1/LPF; RBC Urine 0-1/HPF (0-5/HPF); Squamous Epithelial Cell Urine 0-1 /HPF (0-5/HPF); WBC Urine 0-1/HPF (0-5/HPF)
[2023-04-29] MEDS: diphenhydrAMINE 50 MG/ML VIAL 25 MG IV (18:13)
[2023-04-29] MEDS: ACETAMINOPHEN 325 MG TABLET 975 MG PO (18:13)
--- NOTE | 2023-04-29 18:20 | PC.NURSE ---
Around 1808 pt began complaining of left sided flank pain. Blood transfusion paused, Dr. Padilla and Dr. Cain made aware. tylenol and benadryl given at 1813. Will re assess at 1830 to restart blood if pain is improved per Dr. Padilla.
[2023-04-29] MEDS: FUROSEMIDE 40 MG/4 ML VIAL IV (20:00)
== END 2023-04-29 20:41 | disposition home or self-care (01) ==
PROVIDERS: Emergency Provider Family Medicine Addiction Medicine; PCP Family Medicine
DX: D64.9 Anemia, unspecified (principal); R06.00 Dyspnea, unspecified; R07.9 Chest pain, unspecified; M25.552 Pain in left hip; M25.551 Pain in right hip; Z79.899 Other long term (current) drug therapy
CPT/HCPCS: 36415; 36430; 71275; 74177; 80053; 81003; 81015; 83880; 84145; 84484; 85025; 85379; 86140; 86850; 86900; 86901; 93005; 93010; 96374; 96375; 99285; P9016; J1200; J1940; J2405; Q9967

== ENCOUNTER → 2023-05-01 08:48 | Outpatient (CLI) | payer OTHER, SELFPAY ==
[2023-05-01 10:29] LABS: Add Manual Diff / Slide Review NO; Basophils Absolute Auto 0 /uL (0-100); Basophils Percent Auto 0.2 % (0-2); Eosinophils Absolute Auto 100 /uL (0-450); Eosinophils Percent Auto 2.2 % (2-4); Hematocrit 24.9 % (36-46); Hemoglobin 8.5 g/dL (12.0-16.0); Lymphocytes Absolute Auto 600 /uL (1100-4500); Mean Corpuscular HGB Conc 34.2 % (30-36); Mean Corpuscular Hemoglobin 29.9 PG (26-34); Mean Corpuscular Volume 87.3 fL (80-100); Monocytes Absolute Auto 300 /uL (0-900); Neutrophils Absolute Auto 2000 /uL (1500-7000); Neutrophils Percent Auto 66.6 % (50-75); Platelet Count 118 X10^3/uL (150-400); Red Blood Cell Count 2.85 X10^6/uL (4.0-5.2); Red Cell Distribution Width 20.2 % (11.6-14.8)
[2023-05-01 10:32] LABS: Alanine Aminotransferase 152 IU/L (<35); Albumin 3.6 g/dL (3.5-5.0); Alkaline Phosphatase 80 U/L (38-126); Aspartate Aminotransferase 85 IU/L (14-36); BUN Creatinine Ratio 8.8 (6-22); Bilirubin Total 0.9 mg/dL (0.2-1.3); Blood Urea Nitrogen 15 mg/dL (7-17); Calcium 11.2 mg/dL (8.4-10.2); Carbon Dioxide 30 mmol/L (22-32); Chloride 98 mmol/L (98-107); Cholesterol 62 mg/dL (140-199); Estimated Glomerular Filt Rate 35 mL/min (>60); Glucose 127 mg/dL (70-100); HDL Cholesterol 27 mg/dL (40-60); HEMOLYSIS < 15 (0-50); LDL Cholesterol Calculated 22 mg/dL (<100); Potassium 4.3 mmol/L (3.4-5.1); Sodium 141 mmol/L (137-145); Triglycerides 65 mg/dL (35-150)
[2023-05-01 10:42] LABS: Albumin Globulin Ratio 0.5 (1.0-2.8); Globulin 7.6 g/dL (1.7-4.1); Total Protein 11.2 g/dL (6.3-8.2)
[2023-05-01 11:48] LABS: Anisocytosis 2+; Macrocytosis 1+; Microcytosis 2+; Platelet Estimate Decreased on smear
[2023-05-01 15:56] LABS: Creatinine Urine Random 177.6 mg/dL
[2023-05-01 16:05] LABS: Microalbumi Creatinin Ratio Ur 95.7 ug/mg CR (<30)
== END ==
PROVIDERS: PCP Family Medicine; Referring Provider Family Medicine; Visit Provider Family Medicine
DX: E11.9 Type 2 diabetes mellitus without complications (principal); D64.9 Anemia, unspecified
CPT/HCPCS: 36415; 80053; 80061; 82043; 82570; 83036; 85025

== ENCOUNTER → 2023-05-03 09:12 | Outpatient (CLI) | payer OTHER, SELFPAY ==
[2023-05-03 10:02] LABS: Add Manual Diff / Slide Review NO; Basophils Absolute Auto 0 /uL (0-100); Basophils Percent Auto 0.5 % (0-2); Eosinophils Absolute Auto 100 /uL (0-450); Hematocrit 24.2 % (36-46); Hemoglobin 8.4 g/dL (12.0-16.0); Lymphocytes Absolute Auto 1700 /uL (1100-4500); Mean Corpuscular HGB Conc 34.5 % (30-36); Mean Corpuscular Hemoglobin 30.5 PG (26-34); Mean Corpuscular Volume 88.4 fL (80-100); Monocytes Absolute Auto 500 /uL (0-900); Monocytes Percent Auto 11.5 % (3-14); Neutrophils Absolute Auto 1900 /uL (1500-7000); Platelet Count 105 X10^3/uL (150-400); Red Blood Cell Count 2.74 X10^6/uL (4.0-5.2); Red Cell Distribution Width 19.9 % (11.6-14.8); White Blood Cell Count 4.1 X10^3/uL (4.5-11.0)
[2023-05-03 10:03] LABS: Alanine Aminotransferase 136 IU/L (<35); Albumin 3.6 g/dL (3.5-5.0); Alkaline Phosphatase 95 U/L (38-126); Aspartate Aminotransferase 90 IU/L (14-36); BUN Creatinine Ratio 8.1 (6-22); Bilirubin Total 0.8 mg/dL (0.2-1.3); Blood Urea Nitrogen 12 mg/dL (7-17); C-Reactive Protein Quant 2.6 mg/dL (<1.0); Calcium 11.4 mg/dL (8.4-10.2); Carbon Dioxide 23 mmol/L (22-32); Chloride 101 mmol/L (98-107); Estimated Glomerular Filt Rate 41 mL/min (>60); Glucose 111 mg/dL (70-100); HEMOLYSIS < 15 (0-50); Potassium 4.2 mmol/L (3.4-5.1); Sodium 141 mmol/L (137-145)
[2023-05-03 10:04] LABS: Rheumatoid Factor < 8.6 IU/mL (<12.0)
[2023-05-03 10:11] LABS: Albumin Globulin Ratio 0.5 (1.0-2.8); Globulin 7.9 g/dL (1.7-4.1); Total Protein 11.5 g/dL (6.3-8.2)
[2023-05-03 10:12] LABS: Erythrocyte Sedimentation Rate > 140 MM/HR (0-20)
[2023-05-07 19:41] LABS: CCP Antibodies IgG/IgA 11 units (0-19)
== END ==
PROVIDERS: PCP Family Medicine; Referring Provider Family Medicine; Visit Provider Family Medicine
DX: M25.552 Pain in left hip (principal); D64.9 Anemia, unspecified; R74.8 Abnormal levels of other serum enzymes
CPT/HCPCS: 36415; 80053; 85025; 85651; 86140; 86200; 86430

== ENCOUNTER → 2023-05-16 09:02 | Outpatient (CLI) | payer OTHER, SELFPAY ==
[2023-05-16 09:54] LABS: Hematocrit 23.3 % (36-46); Hemoglobin 8.1 g/dL (12.0-16.0); Mean Corpuscular HGB Conc 34.7 % (30-36); Mean Corpuscular Hemoglobin 30.4 PG (26-34); Mean Corpuscular Volume 87.4 fL (80-100); Platelet Count 81 X10^3/uL (150-400); Red Blood Cell Count 2.67 X10^6/uL (4.0-5.2); Red Cell Distribution Width 21.4 % (11.6-14.8); White Blood Cell Count 4.9 X10^3/uL (4.5-11.0)
[2023-05-16 09:56] LABS: Add Manual Diff / Slide Review YES
[2023-05-16 10:22] LABS: Alanine Aminotransferase 93 IU/L (<35); Albumin 3.6 g/dL (3.5-5.0); Alkaline Phosphatase 91 U/L (38-126); BUN Creatinine Ratio 12.6 (6-22); Bilirubin Total 0.6 mg/dL (0.2-1.3); Blood Urea Nitrogen 20 mg/dL (7-17); C-Reactive Protein Quant 1.5 mg/dL (<1.0); Calcium 12.5 mg/dL (8.4-10.2); Carbon Dioxide 26 mmol/L (22-32); Chloride 99 mmol/L (98-107); Erythrocyte Sedimentation Rate > 140 MM/HR (0-20); Estimated Glomerular Filt Rate 38 mL/min (>60); Glucose 126 mg/dL (70-100); HEMOLYSIS < 15 (0-50); Potassium 3.9 mmol/L (3.4-5.1); Sodium 141 mmol/L (137-145)
[2023-05-16 10:27] LABS: Albumin Globulin Ratio 0.4 (1.0-2.8); Globulin 8.3 g/dL (1.7-4.1); Total Protein 11.9 g/dL (6.3-8.2)
[2023-05-16 12:32] LABS: Neutrophils Absolute Manual 2352 /uL (3000-5900); RBC Morphology Normal Morphology; Total Cells Counted 100
[2023-05-17 11:17] LABS: Ionized Calcium 5.5 mg/dL (4.5-5.6)
[2023-05-17 14:56] LABS: Aspartate Aminotransferase 65 IU/L (14-36)
[2023-05-18 10:56] LABS: Calcium 10.9 mg/dL (8.7-10.2); Parathyroid Hormone, Intact 10 pg/mL (15-65)
[2023-05-23 14:24] LABS: Albumin 3.7 g/dL (2.9-4.4); Alpha-1-Globulin 0.3 g/dL (0.0-0.4); Alpha-2-Globulin 0.6 g/dL (0.4-1.0); Gamma Globulin 5.7 g/dL (0.4-1.8); Globulin Total 7.5 g/dL (2.2-3.9); Protein, Total 11.2 g/dL (6.0-8.5)
== END ==
LOC: LAB 09:03
PROVIDERS: PCP Family Medicine; Referring Provider Family Medicine; Visit Provider Family Medicine
DX: R70.0 Elevated erythrocyte sedimentation rate (principal); E83.52 Hypercalcemia; R79.89 Other specified abnormal findings of blood chemistry; R79.82 Elevated C-reactive protein (CRP); D64.9 Anemia, unspecified
CPT/HCPCS: 36415; 80053; 82310; 82330; 83970; 84155; 84165; 85007; 85025; 85651; 86140

== ENCOUNTER → 2023-05-18 11:10 | Outpatient (CLI) | payer OTHER, SELFPAY ==
[2023-05-18 12:46] LABS: Albumin 3.5 g/dL (3.5-5.0); Aspartate Aminotransferase 55 IU/L (14-36); Bilirubin Total 0.5 mg/dL (0.2-1.3); Blood Urea Nitrogen 16 mg/dL (7-17); Carbon Dioxide 25 mmol/L (22-32); Estimated Glomerular Filt Rate 42 mL/min (>60); Glucose 137 mg/dL (70-100); HEMOLYSIS < 15 (0-50)
[2023-05-18 14:05] LABS: Alanine Aminotransferase 86 IU/L (<35); Alkaline Phosphatase 94 U/L (38-126); Calcium 12.6 mg/dL (8.4-10.2); Chloride 101 mmol/L (98-107); Sodium 141 mmol/L (137-145)
[2023-05-18 14:13] LABS: Albumin Globulin Ratio 0.4 (1.0-2.8); Globulin 8.4 g/dL (1.7-4.1); Total Protein 11.9 g/dL (6.3-8.2)
== END ==
LOC: LAB 11:11
PROVIDERS: PCP Family Medicine; Referring Provider Family Medicine; Visit Provider Family Medicine
DX: R79.89 Other specified abnormal findings of blood chemistry (principal)
CPT/HCPCS: 36415; 80053

== ENCOUNTER → 2023-05-20 | Outpatient (CLI) | payer OTHER, SELFPAY ==
--- NOTE | 2023-05-20 | DI.MG.S_ITS ---
BILATERAL DIGITAL SCREENING MAMMOGRAM 3D/2D WITH CAD: 05/20/2023 CLINICAL: Routine screening. Comparison is made to exams dated: 05/09/2022 mammogram, 05/02/2021 mammogram, and 04/25/2020 mammogram - [facility]. There are scattered areas of fibroglandular density in both breasts (category b / 25%-50% glandular tissue). Current study was also evaluated with a Computer Aided Detection (CAD) system. There is a biopsy clip in the left breast. No significant masses, calcifications, or other findings are seen in either breast. There has been no significant interval change. IMPRESSION: NEGATIVE There is no mammographic evidence of malignancy. A 1 year screening mammogram is recommended. Based on the Tyrer Cuzick model (a risk assessment model) the patient's lifetime risk is 10.6% and her 10 year risk is 3.7%. According to the ACR, ACS, and NCCN guidelines, an annual breast MRI exam along with mammogram is recommended if the patient's lifetime risk is 20% or greater. This exam was interpreted at Station ID: [id number]. NOTE: For mammograms, a report in lay terms will be sent to the patient. Approximately 15% of breast malignancies will not be visualized mammographically. In the management of a palpable breast mass, a negative mammogram must not discourage biopsy of a clinically suspicious lesion. Electronically Signed By: Nii patricio/vish:05/21/2023 13:57:25 letter sent: Normal Exam ACR BI-RADS Category 1: Negative [id number]
== END ==
PROVIDERS: PCP Family Medicine; Referring Provider Family Medicine; Visit Provider Family Medicine
DX: Z12.31 Encounter for screening mammogram for malignant neoplasm of breast (principal); R92.323 Mammographic fibroglandular density, bilateral breasts
CPT/HCPCS: 77063; 77067

== ENCOUNTER → 2023-05-21 07:34 | Outpatient (CLI) | payer OTHER, SELFPAY ==
--- NOTE | 2023-05-21 07:35 | DI.ECHO.S_ITS ---
[place] [facility]---------+ [facility] +---------+ : : [address] : : : : [address] : : : : Phone: [phone] Echocardiogram Report + + :Name: LAUREN SULLIVAN Study Date: 05/21/2023 Height: 26 in : :[facility] ReadingLocation: Weight: 277 lb : : Gender: Female BSA: 1.2 m2 : :: 1965 Age: 57 yrs BP: 148/61 mmHg: :Reason For Study: SOB : : Performed By: Madyson Owens : :Referring: LEW BURT : + + Interpretation Summary The left ventricle is normal in size and wall thickness. Left ventricular systolic function appears normal without focal wall motion abnormalities. The ejection fraction is estimated to be 60-65%. Diastolic parameters suggest a pseudonormalization pattern, consistent with probable elevated filling pressures. The right ventricle grossly appears normal in size with probable normal systolic function. The right ventricular systolic pressure is estimated to be at least 38 mmHg based on an estimated right atrial pressure of 3 mm Hg. The left atrium is severely dilated. Borderline right atrial enlargement. There is mild mitral regurgitation. The aortic root is normal size. Procedure: A two-dimensional transthoracic echocardiogram with color flow and Doppler was performed. The study quality was technically adequate. There is no prior echocardiogram noted for this patient. The heart rate ranged between 87-93 bpm during the study. Left Ventricle: The left ventricle is normal in size and wall thickness. Left ventricular systolic function appears normal without focal wall motion abnormalities. The ejection fraction is estimated to be 60-65%. Diastolic parameters suggest a pseudonormalization pattern, consistent with probable elevated filling pressures. Right Ventricle: The right ventricle grossly appears normal in size with probable normal systolic function. Atria: The left atrium is severely dilated. Borderline right atrial enlargement. The interatrial septum grossly appears intact with no obvious evidence for an atrial septal defect. Mitral Valve: The mitral valve is grossly normal. There is mild mitral regurgitation. Aortic Valve: The aortic valve opens well. There is trace aortic regurgitation. Tricuspid Valve: The tricuspid valve leaflets are thin and pliable. The tricuspid valve leaflets are thickened and/or calcified, but open well. There is mild tricuspid regurgitation. The right ventricular systolic pressure is estimated to be at least 38 mmHg based on an estimated right atrial pressure of 3 mm Hg. Pulmonic Valve: The pulmonic valve is normal in structure and function. There is no pulmonic valvular regurgitation. Great Vessels: The aortic root is normal size. The ascending aorta is normal in size. The aortic arch is normal in size. The IVC is of normal diameter and collapses greater than 50% with a sniff. This suggests a low right atrial pressure of 3 mm Hg. Pericardium/ Pleura There is no pericardial effusion. There is no pleural effusion. MMode/2D Measurements & Calculations LVIDd: 5.2 cm LVOT diam: 1.7 cm LVIDs: 3.0 cm Ao root diam: 2.9 cm FS: 41.8 % asc Aorta Diam: 3.0 cm EPSS: 0.60 cm Ao Arch Diam (Prox Trans): 2.8 cm IVSd: 0.95 cm LVPWd: 0.63 cm LV rousseau. diameter/BSA (cm/m^2): 4.5 LV sys. diameter/BSA (cm/m^2): 2.6 LA A2 area: 22.3 cm2 RA long axis: 4.7 cm LA A4 area: 21.2 cm2 RA area: 15.0 cm2 LA length (vol): 5.4 cm RA vol: 41.3 ml LA vol: 73.9 ml RA : 35.3 ml/m2 LA vol index: 63.3 ml/m2 IVC diam: 2.0 cm RVD1 (basal): 3.1 cm Doppler Measurements & Calculations Ao V2 max: 166.7 cm/sec LVOT Max Rafael: 97.4 cm/sec Ao V2 mean: 123.6 cm/sec LV V1 max P.8 mmHg Ao max P.1 mmHg LV V1 VTI: 20.6 cm Ao mean P.7 mmHg ANTONIO(I,D): 1.3 cm2 Ao V2 VTI: 34.6 cm ANTONIO(V,D): 1.3 cm2 sev ratio: 0.60 ANTONIO indexed to BSA (cm^2/m^2): 1.1 MV E max rafael: 99.2 cm/sec TR max rfaael: 294.0 cm/sec MV A max rafael: 66.7 cm/sec TR max P.6 mmHg MV E/A: 1.5 PA V2 max: 104.6 cm/sec Med Peak E' Rafael: 5.6 cm/sec PA V2 mean: 64.1 cm/sec E/E' med: 17.7 PA mean P.9 mmHg Lat Peak E' Rafael: 8.1 cm/sec PA pr(Accel): 29.3 mmHg E/E' lat: 12.3 E/e' average: 15.0 MV dec time: 0.21 sec MR PISA: 3.9 cm2 SV(LVOT): 46.1 ml MR flow rate: 149.0 cm3/sec MR PISA radius: 0.79 cm Reading Physician:01:22 PM
[2023-05-24 12:36] LABS: Alpha-1 Globulin, Ur 0.5 % (.); Beta Globulin, Ur 33.5 % (.); Gamma Globulin, Ur 56.1 % (.); Urine Total Protein 125.4 mg/dL (Not Estab.)
== END ==
PROVIDERS: PCP Family Medicine; Referring Provider Family Medicine; Visit Provider Family Medicine
DX: I08.1 Rheumatic disorders of both mitral and tricuspid valves (principal); R06.02 Shortness of breath; E83.52 Hypercalcemia
CPT/HCPCS: 84156; 84166; 93307

== ENCOUNTER 2023-05-24 11:49 | Day surgery (SDC) | payer OTHER, SELFPAY ==
--- NOTE | 2023-05-24 | PATH_ITS ---
[facility] Accession Number: [id number] No. of containers..01 Tissue . 01 Material submitted: . gastrointestinal site - GASTRIC BX . 01 Diagnosis: Gastric, Biopsy: Gastric mucosa with minimal chronic nonspecific inflammation. No Helicobacter pylori organisms identified on H/E slide. No intestinal metaplasia, dysplasia, or malignancy. [facility] 05/28/2023 1049 Local . 01 Electronically signed: . Carrol Anderson MD, Pathologist NPI- [id number] . 01 Gross description: . GASTRIC BX: Received in formalin are 2 fragment(s) of nayak, soft tissue measuring 0.2 x 0.2 x 0.2 cm to 0.4 x 0.2 x 0.2 cm submitted entirely in 1 cassette(s) /[facility] 05/27/2023 1919 Local . 01 Pathologist provided ICD-10: K29.30, D64.9 . 01 CPT . 282288 Specimen Comment: A courtesy copy of this report has been sent to [phone] Performed at: 01 [facility] [address] [place] [address], [place], [place] [id number] MD Geo Patel MD Phone: [phone]
[2023-05-24 12:26] VITALS: BP 103/65; PULSE 88; RESP 24; TEMP 36.2; O2SAT 94; BMI 42.1
--- NOTE | 2023-05-24 12:53 | PM.HP.1 ---
History of Present Illness History of Present Illness Date Patient Seen: 05/24/23 Time Patient Seen: 12:53 Chief complaint: EGD/Colonoscopy Narrative: 57-year-old woman here for diagnostic esophagoduodenoscopy and colonoscopy. She underwent both of these exams September 2022 which were unremarkable. She has a diagnosis of anemia most recent hematocrit 18. No hematemesis blood per rectum. ON LICENSE OF [facility] Medical History Type 2 diabetes mellitus Pre-diabetes Surgical History History of tonsillectomy Family History Father Heart disease Grandfather Stroke Mother Hypertension Pulmonary hypertension Grandfather Cancer Grandmother Cancer Social History household members: spouse Smoking Status: Never smoker alcohol intake: current Meds Home Medications and Allergies Home Medications Medication Instructions Recorded Confirmed Type nitroglycerin 0.4 % (w/w) rectal 1 inch [place] BID #30 grams 09/19/18 05/01/23 Rx ointment levocetirizine 5 mg tablet See Rx Instructions .Route 08/24/22 05/24/23 Rx .COMPLEX #90 tabs escitalopram oxalate 10 mg tablet See Rx Instructions .Route 11/21/22 05/24/23 Rx .COMPLEX #90 tabs lorazepam 0.5 mg tablet 0.5 mg PO BID PRN anxiety #30 tabs 11/21/22 05/01/23 Rx metformin 1,000 mg tablet 1,000 mg PO BID #180 tabs 11/21/22 05/24/23 Rx omeprazole 20 mg capsule,delayed 20 mg PO DAILY #90 caps 11/21/22 05/24/23 Rx release ferumoxytol 510 mg/17 mL (30 510 mg (17 mL) IV Q3D 2 doses 05/01/23 05/01/23 Rx mg/mL) intravenous solution (Feraheme) sodium,potassium,mag sulfates 17.5 See Rx Instructions PO .COMPLEX 05/14/23 Rx gram-3.13 gram-1.6 gram oral soln #354 mL (Suprep Bowel Prep Kit) tramadol 50 mg tablet 50 mg PO TID PRN pain #20 tabs 05/17/23 Rx Allergies Allergy/AdvReac Type Severity Reaction Status Date / Time No Known Drug Allergies Allergy Verified 05/24/23 12:17 Exam Vital Signs (past 8 hours): - 05/24/23 12:26 Temperature 97.2 F L Pulse Rate 88 Respiratory Rate 24 Blood Pressure 103/65 Pulse Oximetry 94 Oxygen Delivery Method Room Air Oxygen Delivery Method Room Air Narrative Exam Narrative: General adult woman alert oriented no acute distress Chest nonlabored respiration Extremities warm well perfused Assessment & Plan Assessment and plan (1) Anemia: Status: Acute Assessment & Plan narrative: 57-year-old woman with symptomatic anemia here for diagnostic esophagoduodenoscopy and colonoscopy. Technical details were discussed. Risks, benefits, alternatives explained. Risks including but not limited to myocardial infarction, aspiration, bleeding, pain, missed lesion, incomplete examination, need for further radiographic studies, colonic perforation, and need for major abdominal surgery were discussed. All questions were answered to their satisfaction, and they are in agreement with this plan.
[2023-05-24 13:26] VITALS: BP 136/96; PULSE 98; RESP 18; TEMP 36.7; O2SAT 98
[2023-05-24 13:31] VITALS: BP 141/94; PULSE 89; RESP 14; O2SAT 91
--- NOTE | 2023-05-24 13:31 | PM.OP.EC ---
Operative Date/Time/Diagnoses Date of procedure: 05/24/23 Time of procedure: 13:32 Pre-op diagnosis: Anemia Post-op diagnosis: other (Gastric ulcers) Procedure & Clinicians Study performed: Esophagoduodenoscopy and colonoscopy Same procedure as scheduled: Yes Indications: Anemia Surgeon: Rickey Espinoza Procedure Notes Procedure in detail: The history and physical was performed/updated and the patient is ASA class is 3. The procedure was discussed in detail with the patient. Potential risks complications including infection, bleeding, missed diagnosis, perforation, need for surgery, and were explained. Their questions were answered and informed consent was obtained. Patient placed in left lateral decubitus position. Time out was performed. Procedural sedation was administered by Anesthesia. A bite block was placed. the scope was inserted into the mouth and advanced through the esophagus and into the stomach. the pylorus was intubated and the duodenum was examined to the 2nd portion.. The scope was retroflexed within the stomach. The stomach was then decompressed and scope pulled back to the GE junction. The scope was then removed Examination began with a thorough inspection of the perianal area there was no evidence of fissures, fistulae, external hemorrhoids or cutaneous malignancy. The colonoscopy scope was then placed into the anal canal and was advanced to the cecum, which was identified by the ileocecal valve, the appendiceal orifice and the confluence of the taenia. The scope was then slowly withdrawn examining colon thoroughly in all directions, irrigating it of any residual stool. FINDINGS -multiple linear resolving gastric ulcers in body of stomach. -no active hemorrhage -normal colonoscopy without masses or polyps The patient tolerated the procedure well. They will be discharged once criteria are met. The prep was of good/excellent quality. The withdrawl time was 6 minutes. Specimen(s): other (Gastric) Impression: Resolving gastric ulcers Post-procedure Plan for aftercare: Omeprazole 40 mg daily Continue iron supplementation Disposition: same day surgery
[2023-05-24 13:39] VITALS: BP 149/103; PULSE 87; RESP 14; TEMP 36.3; O2SAT 93
[2023-05-24 13:41] VITALS: BP 153/94; PULSE 90; RESP 916; O2SAT 95
[2023-05-24] MEDS: LACTATED RINGERS 1,000 ML 42 ML IV (13:52)
== END 2023-05-24 14:04 | disposition home or self-care (01) ==
PROVIDERS: PCP Family Medicine; Referring Provider Surgery; Visit Provider Surgery
PROC: 0DJ08ZZ Inspection of Upper Intestinal Tract, Via Natural or Artificial Opening Endoscopic (ICD-10-PCS; CPT 43235; principal; 2023-05-24 13:00)
PROC: 0DJD8ZZ Inspection of Lower Intestinal Tract, Via Natural or Artificial Opening Endoscopic (ICD-10-PCS; CPT 45378; 2023-05-24 13:00)
DX: D64.9 Anemia, unspecified (principal); K29.50 Unspecified chronic gastritis without bleeding
CPT/HCPCS: 45378; 43239; J2405; J2704

== ENCOUNTER → 2023-05-27 07:10 | Outpatient (CLI) | payer OTHER, SELFPAY ==
--- NOTE | 2023-05-27 07:11 | DI.MRI.S_ITS ---
PROCEDURE: MR HIP LT WO CON INDICATIONS: bilateral hip pain, severe TECHNIQUE: Noncontrast coronal T1 spin echo and STIR through the bony pelvis. Coronal and axial T2 fast spin echo with fat saturation, sagittal T1 spin echo, and oblique axial T2 fast spin echo with fat saturation through the hip. COMPARISON: None. FINDINGS: Image quality: Excellent. Bones and joints: Diffusely heterogeneous T2 hyperintense and T1 hypointense signal scattered throughout bony pelvis, bilateral proximal femur and visualized lower lumbar spine is seen. Moderate bilateral hip joint osteoarthritic changes also noted slightly worse on the left side. No acute fracture or dislocation. No avascular necrosis of the femoral heads. The visualized lower lumbar spine appears normally aligned. Tendons and ligaments: The gluteus medius and minimus tendons appear intact, without associated muscle atrophy. The nearby proximal iliotibial band also appears intact. The iliopsoas tendon appears intact, without adjacent bursal fluid collections or evidence for impingement syndrome. The origin of the hamstring tendon is intact at the ischial tuberosity, as well as the associated sacrotuberous ligament. The straight and reflected heads of the rectus femoris muscle origin appear intact, as well as the conjoint tendon. The ligamentum teres appears intact where visualized. Labrum and cartilage: There is signal abnormality and fraying of left hip labrum at 11 to 1 o'clock position suggestive of superior left hip labral tear. Diffuse thinning of articulating cartilage over left femoral head is also seen. The alpha angle of the femur is within normal limits at less than 55 degrees. Soft tissues: Visualized muscles demonstrate normal bulk and internal signal. Quadratus femoris muscle demonstrates no internal edema to suggest ischiofemoral impingement. The proximal sciatic neurovascular bundle appears normal adjacent to the hamstring tendons. No free pelvic fluid. Bladder wall thickness is normal. Genitourinary structures and bowel loops appear normal where visualized. IMPRESSION: 1. Diffusely heterogeneous marrow signal throughout bony pelvis and lower lumbar spine concerning for infiltrative process such as multiple myeloma or lymphoma suggest clinical correlation. Please also correlate with MR bone marrow scan. 2. No acute fracture or dislocation. Moderate bilateral hip joint osteoarthritis slightly worse on the right side. No evidence of avascular necrosis of femoral head. 3. Suggestion of superior left hip labral tear at 11 to 1 o'clock position. Dictated by: Cody Headley M.D. on 05/27/2023 at 10:49 Approved by: Cody Headley M.D. on 05/27/2023 at 11:11
--- NOTE | 2023-05-27 07:11 | DI.MRI.S_ITS ---
PROCEDURE: MR HIP RT WO CON INDICATIONS: bilateral hip pain, severe TECHNIQUE: Noncontrast coronal T1 spin echo and STIR through the bony pelvis. Coronal and axial T2 fast spin echo with fat saturation, sagittal T1 spin echo, and oblique axial T2 fast spin echo with fat saturation through the hip. COMPARISON: None. FINDINGS: Image quality: Excellent. Bones and joints: Heterogeneously T1 hypointense and T2 hyperintense signal throughout visualized bony pelvis, bilateral proximal femur and lower lumbar spine is seen. No acute fracture or dislocation. Moderate bilateral hip joint osteoarthritic changes are seen. No avascular necrosis of the femoral heads. The visualized lower lumbar spine appears normally aligned. Tendons and ligaments: The gluteus medius and minimus tendons appear intact, without associated muscle atrophy. The nearby proximal iliotibial band also appears intact. The iliopsoas tendon appears intact, without adjacent bursal fluid collections or evidence for impingement syndrome. The origin of the hamstring tendon is intact at the ischial tuberosity, as well as the associated sacrotuberous ligament. The straight and reflected heads of the rectus femoris muscle origin appear intact, as well as the conjoint tendon. The ligamentum teres appears intact where visualized. Labrum and cartilage: Fraying of superior right hip labrum with T2 hyperintense signal at 11 to 1 o'clock position is seen concerning for superior labral tear. Diffuse thinning of articulating cartilage over right femoral head is noted. The alpha angle of the femur is within normal limits at less than 55 degrees. Soft tissues: Visualized muscles demonstrate normal bulk and internal signal. Quadratus femoris muscle demonstrates no internal edema to suggest ischiofemoral impingement. The proximal sciatic neurovascular bundle appears normal adjacent to the hamstring tendons. No free pelvic fluid. Bladder wall thickness is normal. Genitourinary structures and bowel loops appear normal where visualized. IMPRESSION: 1. Heterogeneously T1 hypointense and T2 hyperintense signal scattered throughout visualized bony pelvis and lower lumbar spine concerning for infiltrative process such as multiple myeloma suggest clinical correlation. 2. Moderate bilateral hip joint osteoarthritis. No acute fracture or dislocation. No evidence of avascular necrosis of femoral head. 3. No gross muscle or tendon signal abnormality is seen in right hip and right hemipelvis. 4. Suggestion of superior right hip labral tear at 11 to 1 o'clock position. Dictated by: Cody Headley M.D. on 05/27/2023 at 10:45 Approved by: Cody Headley M.D. on 05/27/2023 at 10:49
--- NOTE | 2023-05-27 09:23 | DI.RAD.S_ITS ---
PROCEDURE: XR BONE SURVEY INDICATIONS: likely multiple myeloma, staging TECHNIQUE: Multiple views obtained of various bony structures as described below. COMPARISON: [facility], MR, MR BONE MARROW, 05/27/2023, 8:54. FINDINGS: Skull (lateral): No suspicious bony lesions. No fractures. Thoracic spine (AP, lateral): No suspicious bony lesions. No acute vertebral body compression fractures. Lumbar spine (AP, lateral): No suspicious bony lesions. No acute vertebral body compression fractures. Pelvis (AP): No suspicious bony lesions. No fractures. Overlying soft tissues appear unremarkable. Right and left humeri (AP): No suspicious bony lesions. No fractures. Overlying soft tissues appear unremarkable. Right and left femurs (AP): No suspicious bony lesions. No fractures. Overlying soft tissues appear unremarkable. IMPRESSION: No obvious lytic or sclerotic bony lesions are seen. Please correlate with MRI bone marrow scan for possible multiple myeloma is lesion involving bony pelvis and right femur. Dictated by: Cody Headley M.D. on 05/27/2023 at 11:31 Approved by: Cody Headley M.D. on 05/27/2023 at 11:33
--- NOTE | 2023-05-27 09:56 | DI.MRI.S_ITS ---
PROCEDURE: MR BONE MARROW INDICATIONS: likely multiple myeloma, staging TECHNIQUE: Noncontrast sagittal T1 spin echo and STIR through the spine; coronal T1 spin echo and STIR through the bony thorax, coronal T1 spin echo and STIR through the bony pelvis and femurs. COMPARISON: None. FINDINGS: Image quality: Excellent. Spine: All visualized vertebral bodies are normally aligned. No vertebral body compression fractures. Diffusely heterogeneously T1 hypointense and mildly T2 hyperintense signals are noted throughout cervical, thoracic and lumbar spine vertebral bodies. There is 1.8 x 1.5 cm hypodense lesion involving S1 vertebral body anterior aspect series 20, image 9 and series 7, image 8 without adjacent marrow edema or cortical erosion. Degenerative disc disease in mid to lower thoracic spine and lumbar spine is seen causing mild central canal stenosis T6-7 level. The visualized spinal cord demonstrates normal intramedullary signal. The conus is in expected position. No epidural or paravertebral soft tissue masses. Pelvis and hips: Heterogeneously T1 hypointense and T2 hyperintense signal is seen throughout bony pelvis and bilateral femur. There is a focal T2 hyperintense and T1 hypointense lesion involving right sacrum adjacent to sacroiliac joint measures 1.6 x 1.6 cm in size series 20, image 6. No associated surrounding marrow edema or cortical destruction is noted. There is also a 9 mm T1 hypointense and T2 hyperintense lesion involving lateral cortex of mid femoral shaft without associated erosion or cortical destruction is seen series 19, image 10. Additional 9 mm lesion is also seen in more distal right femoral shaft series 19, image 9. No associated marrow edema or abnormal periosteal reaction is seen. There is no pelvic ring or sacral pathologic or insufficiency fractures. Bilateral hip joint osteoarthritic changes are seen. No evidence of avascular necrosis of femoral head. Soft tissues: No free pelvic fluid. No pathologic pelvic or inguinal adenopathy. Visualized bowel loops appear normal in caliber. Limited images through the genitourinary tract demonstrate no abnormalities. The muscles demonstrate normal overall bulk and internal signal. IMPRESSION: 1. Diffusely heterogeneous marrow signal throughout visualized spine and bony pelvis as well as bilateral femur. Focal T2 hyperintense lesions are noted involving S1 vertebral body, right-side of sacrum adjacent to sacroiliac joint and in mid to distal right femoral shaft as described above. Overall findings are concerning for marrow infiltrative process such as multiple myeloma. No acute fracture or dislocation. No evidence of pathologic fracture. 2. No discrete soft tissue mass or drainable fluid collection. Dictated by: Cody Headley M.D. on 05/27/2023 at 11:11 Approved by: Cody Headley M.D. on 05/27/2023 at 11:31
[2023-05-27 11:27] LABS: Add Manual Diff / Slide Review NO; Basophils Absolute Auto 0 /uL (0-100); Basophils Percent Auto 0.3 % (0-2); Eosinophils Absolute Auto 100 /uL (0-450); Eosinophils Percent Auto 1.4 % (2-4); Hematocrit 22.1 % (36-46); Hemoglobin 7.6 g/dL (12.0-16.0); Lymphocytes Absolute Auto 1900 /uL (1100-4500); Lymphocytes Percent Auto 42.5 % (25-40); Mean Corpuscular HGB Conc 34.6 % (30-36); Mean Corpuscular Hemoglobin 31.3 PG (26-34); Mean Corpuscular Volume 90.4 fL (80-100); Monocytes Absolute Auto 300 /uL (0-900); Monocytes Percent Auto 5.8 % (3-14); Neutrophils Absolute Auto 2300 /uL (1500-7000); Platelet Count 66 X10^3/uL (150-400); Red Blood Cell Count 2.44 X10^6/uL (4.0-5.2); Red Cell Distribution Width 21.5 % (11.6-14.8); White Blood Cell Count 4.5 X10^3/uL (4.5-11.0)
[2023-05-27 11:38] LABS: Anisocytosis 2+
[2023-05-27 11:39] LABS: Lactate (Lactic Acid) 2.5 mmol/L (0.7-2.1)
[2023-05-27 11:40] LABS: Alanine Aminotransferase 61 IU/L (<35); Albumin 3.6 g/dL (3.5-5.0); Alkaline Phosphatase 85 U/L (38-126); Aspartate Aminotransferase 46 IU/L (14-36); BUN Creatinine Ratio 10.2 (6-22); Bilirubin Total 0.8 mg/dL (0.2-1.3); Blood Urea Nitrogen 16 mg/dL (7-17); Calcium 12.7 mg/dL (8.4-10.2); Carbon Dioxide 25 mmol/L (22-32); Chloride 96 mmol/L (98-107); Estimated Glomerular Filt Rate 38 mL/min (>60); Glucose 180 mg/dL (70-100); Potassium 3.9 mmol/L (3.4-5.1); Sodium 137 mmol/L (137-145)
[2023-05-27 11:50] LABS: Albumin Globulin Ratio 0.4 (1.0-2.8); Globulin 8.3 g/dL (1.7-4.1); Total Protein 11.9 g/dL (6.3-8.2)
[2023-05-29 08:40] LABS: HEMOLYSIS 52 (0-50); Lactate Dehydrogenase 211 U/L (120-246)
[2023-05-29 12:15] LABS: Immunoglobulin A, Serum 6119 mg/dL (87-352); Immunoglobulin G,Serum 177 mg/dL (586-1602); Immunoglobulin M, Serum 10 mg/dL (26-217)
[2023-05-29 15:27] LABS: Beta-2-Microglobulin 9.1 mg/L (0.6-2.4)
[2023-06-04 20:08] LABS: Free Lambda Lt Chains,Serum 2.9 mg/L (5.7-26.3)
== END ==
PROVIDERS: PCP Family Medicine; Referring Provider Family Medicine; Visit Provider Family Medicine
DX: D47.2 Monoclonal gammopathy (principal); M16.0 Bilateral primary osteoarthritis of hip; M25.551 Pain in right hip; M25.552 Pain in left hip
CPT/HCPCS: 36415; 73721; 77075; 77084; 80053; 82232; 82784; 83605; 83615; 83883; 84155; 85025; 86334

== ENCOUNTER → 2023-06-01 09:30 | Outpatient (CLI) | payer OTHER, SELFPAY ==
[2023-06-01 10:02] LABS: Add Manual Diff / Slide Review NO; Basophils Absolute Auto 0 /uL (0-100); Basophils Percent Auto 0.4 % (0-2); Eosinophils Absolute Auto 100 /uL (0-450); Eosinophils Percent Auto 1.7 % (2-4); Hematocrit 29.3 % (36-46); Lymphocytes Absolute Auto 2100 /uL (1100-4500); Lymphocytes Percent Auto 46.7 % (25-40); Mean Corpuscular HGB Conc 34.3 % (30-36); Mean Corpuscular Hemoglobin 29.5 PG (26-34); Mean Corpuscular Volume 86.2 fL (80-100); Monocytes Absolute Auto 400 /uL (0-900); Monocytes Percent Auto 9.1 % (3-14); Neutrophils Absolute Auto 1900 /uL (1500-7000); Neutrophils Percent Auto 42.1 % (50-75); Platelet Count 64 X10^3/uL (150-400); Red Cell Distribution Width 23.8 % (11.6-14.8); White Blood Cell Count 4.4 X10^3/uL (4.5-11.0)
[2023-06-01 11:09] LABS: Alanine Aminotransferase 57 IU/L (<35); Albumin 3.5 g/dL (3.5-5.0); Alkaline Phosphatase 84 U/L (38-126); Aspartate Aminotransferase 44 IU/L (14-36); BUN Creatinine Ratio 8.3 (6-22); Bilirubin Total 0.6 mg/dL (0.2-1.3); Blood Urea Nitrogen 14 mg/dL (7-17); Calcium 12.6 mg/dL (8.4-10.2); Carbon Dioxide 23 mmol/L (22-32); Chloride 99 mmol/L (98-107); Estimated Glomerular Filt Rate 35 mL/min (>60); Glucose 124 mg/dL (70-100); Sodium 140 mmol/L (137-145)
[2023-06-01 11:19] LABS: HEMOLYSIS < 15 (0-50)
[2023-06-01 11:21] LABS: Albumin Globulin Ratio 0.4 (1.0-2.8); Globulin 8.3 g/dL (1.7-4.1); Total Protein 11.8 g/dL (6.3-8.2)
[2023-06-01 11:25] LABS: Platelet Estimate Decreased on smear; Rouleaux 1+
[2023-06-01 11:27] LABS: Anisocytosis 3+; Nucleated Red Blood Cells 1 #/Diff
== END ==
LOC: LAB 09:32
PROVIDERS: PCP Family Medicine; Referring Provider Family Medicine; Visit Provider Family Medicine
DX: C90.00 Multiple myeloma not having achieved remission (principal)
CPT/HCPCS: 36415; 80053; 85025

== ENCOUNTER 2023-06-03 16:42 | Emergency (ER) | payer OTHER, SELFPAY ==
[2023-06-03] VITALS (11 sets, daily range): BP systolic 145–176; BP diastolic 75–91; PULSE 80–99; RESP 18–27; TEMP 36.4–37; O2SAT 91–96; BMI 41.9
--- NOTE | 2023-06-03 17:47 | ED.RECABL ---
HPI - Recheck/Abnormal Lab/Rx General Chief Complaint: Recheck/Abnormal Lab/Rx Stated Complaint: Oncolygist ref/needs treatment for hypercalcemia Time Seen by Provider: 06/03/23 16:57 History of Present Illness HPI narrative: 57-year-old female with history of recently diagnosed multiple myeloma, anemia, anxiety, depression presents for treatment of hypercalcemia from her oncologist's office. Patient had her initial visit today, labs taken this morning showed a calcium greater than 12. She was referred to the ER for treatment. Patient states that she is felt foggy and fuzzy headed for the last several weeks and has had constipation. She has not begun any chemo or other treatments for her multiple myeloma, today was her very 1st oncology appointment. Related Data Previous Rx's Medication Instructions Recorded nitroglycerin 0.4 % (w/w) rectal 1 inch [place] BID #30 grams 09/19/18 ointment levocetirizine 5 mg tablet See Rx Instructions .Route 08/24/22 .COMPLEX #90 tabs metformin 1,000 mg tablet 1,000 mg PO BID #180 tabs 11/21/22 ferumoxytol 510 mg/17 mL (30 510 mg (17 mL) IV Q3D 2 doses 05/01/23 mg/mL) intravenous solution (Feraheme) sodium,potassium,mag sulfates 17.5 See Rx Instructions PO .COMPLEX 05/14/23 gram-3.13 gram-1.6 gram oral soln #354 mL (Suprep Bowel Prep Kit) 2 units O+ blood 2 unit IV ONCE multiple Myeloma, 05/28/23 anemia #2 units Disabled Parking #1 ea 05/28/23 escitalopram oxalate 20 mg tablet See Rx Instructions .Route 05/28/23 .COMPLEX #90 tabs lidocaine 1.8 % topical patch 2 patch topical DAILY #30 ea 05/28/23 lorazepam 0.5 mg tablet 0.5 mg PO BID PRN anxiety #30 tabs 05/28/23 omeprazole 40 mg capsule,delayed 40 mg PO BID #180 caps 05/28/23 release tramadol 50 mg tablet 50 mg PO TID PRN pain #90 tabs 05/28/23 lidocaine 5 % topical patch 1 patch topical DAILY #15 ea 06/02/23 Allergies Allergy/AdvReac Type Severity Reaction Status Date / Time No Known Drug Allergies Allergy Verified 05/28/23 07:57 Review of Systems Review of Systems Narrative: Negative except as noted above Patient History Medical History Gastric ulcer Multiple myeloma Type 2 diabetes mellitus Pre-diabetes Surgical History History of tonsillectomy Family History Father Heart disease Grandfather Stroke Mother Hypertension Pulmonary hypertension Grandfather Cancer Grandmother Cancer Social History household members: spouse Smoking Status: Never smoker alcohol intake: current Smoking Status: Never smoker alcohol intake frequency: holidays/special occasions only Substance Use Type: does not use Exam Initial Vital Signs Initial Vital Signs: Vital Signs Temperature 97.5 F L 06/03/23 16:45 Pulse Rate 89 06/03/23 16:45 Respiratory Rate 18 06/03/23 16:45 Blood Pressure 149/75 H 06/03/23 16:45 Pulse Oximetry 92 06/03/23 16:45 Oxygen Delivery Method Room Air 06/03/23 16:45 Const: Awake, alert, no acute distress, nontoxic appearing Cardiac: regular rate, regular rhythm RESP: unlabored, clear bilaterally, no wheezing GI: Atraumatic, soft, nontender, nondistended, no rebound, no guarding MSK: Atraumatic, full range of motion, pulses equal Skin: Warm, Dry, intact, no rashes Neuro: AO x3, CN II-XII grossly intact, moves all extremities Course Orders Ordered: Discontinued Medications Calcitonin [place] (Calcitonin,[place] 400 Units/2 Ml Mdv) 400 units IM NOW ONE Stop: 06/03/23 19:46 Last Admin: 06/03/23 19:39 Dose: 400 units Documented By: ES Sodium Chloride (Normal Saline 0.9%) 1,000 mls @ 1,000 mls/hr IV BOLUS ONE Stop: 06/03/23 17:56 Last Infusion: 06/03/23 19:09 Dose: Infused Documented By: Admin: 06/03/23 17:49 Dose: 1,000 mls/hr Documented By: ES Sodium Chloride (Normal Saline 0.9%) 1,000 mls @ 1,000 mls/hr IV BOLUS ONE Stop: 06/03/23 19:34 Last Infusion: 06/03/23 20:17 Dose: Infused Documented By: Admin: 06/03/23 19:15 Dose: 1,000 mls/hr Documented By: TATY Ondansetron HCl (Ondansetron 4 Mg/2 Ml Inj) 4 mg IV NOW ONE Stop: 06/03/23 20:18 Last Admin: 06/03/23 20:20 Dose: 4 mg Documented By: TATY Vital Signs Vital signs: Vital Signs - 8 hr 06/03/23 16:45 06/03/23 16:57 06/03/23 16:58 Temperature 97.5 F L Pulse Rate 89 99 H Respiratory Rate 18 Blood Pressure 149/75 H 176/85 H Pulse Oximetry 92 95 Oxygen Delivery Method Room Air 06/03/23 16:58 06/03/23 17:00 06/03/23 17:30 Temperature Pulse Rate 97 H 90 90 Respiratory Rate 27 H 26 H Blood Pressure Pulse Oximetry 93 93 91 Oxygen Delivery Method 06/03/23 18:00 06/03/23 18:30 06/03/23 19:00 Temperature Pulse Rate 85 84 80 Respiratory Rate 19 20 18 Blood Pressure Pulse Oximetry 93 91 94 Oxygen Delivery Method MDM - Recheck/Abnormal Lab/Rx Differential Diagnosis Differential diagnosis: Likely other ( hypercalcemia, anemia, hypomagnesemia) Lab Data 06/03/23 17:40 06/03/23 17:40 Labs: Lab Results 06/03/23 Range/Units 17:40 WBC 5.1 (4.5-11.0) X10^3/uL RBC 3.20 L (4.0-5.2) X10^6/uL Hgb 9.3 L (12.0-16.0) g/dL Hct 27.4 L (36-46) % MCV 85.8 (80-100) fL MCH 29.1 (26-34) PG MCHC 33.9 (30-36) % RDW 22.7 H (11.6-14.8) % Plt Count 62 L (150-400) X10^3/uL Neut % (Auto) 49.2 L (50-75) % Lymph % (Auto) 40.6 H (25-40) % [place] % (Auto) 8.4 (3-14) % Eos % (Auto) 1.2 L (2-4) % Baso % (Auto) 0.6 (0-2) % Neut # (Auto) 2500 (8730-8446) /uL Lymph # (Auto) 2100 (2423-4593) /uL [place] # (Auto) 400 (0-900) /uL Eos # (Auto) 100 (0-450) /uL Baso # (Auto) 0 (0-100) /uL RBC Morphology See below Anisocytosis 2+ H Rouleaux 2+ H Sodium 140 (137-145) mmol/L Potassium 3.7 (3.4-5.1) mmol/L Chloride 97 L (98-107) mmol/L Carbon Dioxide 26 (22-32) mmol/L BUN 16 (7-17) mg/dL Creatinine 1.71 H (0.52-1.04) mg/dL Estimated GFR 35 L (>60) mL/min BUN/Creatinine Ratio 9.4 (6-22) Glucose 146 H (70-100) mg/dL Calcium 13.3 H* (8.4-10.2) mg/dL Magnesium 2.4 H (1.6-2.3) mg/dL Total Bilirubin 0.7 (0.2-1.3) mg/dL AST 37 H (14-36) IU/L ALT 47 H (<35) IU/L Alkaline Phosphatase 86 (38-126) U/L Total Protein 11.7 H (6.3-8.2) g/dL Albumin 3.5 (3.5-5.0) g/dL Globulin 7.77107 H (1.7-4.1) g/dL Albumin/Globulin Ratio 0.0 L (1.0-2.8) MDM Narrative Medical decision making narrative: hypercalcemia in patient with known multiple myeloma. Review of previous lab work shows that value has been slowly climbing over the last several months. She is considered to be symptomatic due to the brain fog and constipation, however she is alert and oriented x3 and in no acute distress. Calcium 13.3, magnesium within normal limits. Patient was given 2 L of IV fluids and calcitonin. She and her were advised at bedside of the importance of close oncology follow up. They will call 1st thing tomorrow morning to schedule a repeat appointment. Discharge Plan Departure Patient Disposition: Home Clinical Impression: Hypercalcemia Instructions: DI for Hypercalcemia Prescriptions: No Action nitroglycerin 0.4 % (w/w) ointment 1 inch [place] BID Qty: 30 2RF levocetirizine 5 mg tablet See Rx Instructions .ROUTE .COMPLEX Qty: 90 2RF Dose Instruction: TAKE 1 TABLET BY MOUTH DAILY Rx Instructions: TAKE 1 TABLET BY MOUTH DAILY metformin 1,000 mg tablet 1,000 mg PO BID Qty: 180 3RF lorazepam 0.5 mg tablet 0.5 mg PO BID PRN (Reason: anxiety) Qty: 30 0RF escitalopram oxalate 20 mg tablet See Rx Instructions .ROUTE .COMPLEX Qty: 90 3RF Dose Instruction: TAKE 1 AND 1/2 TABLETS BY MOUTH EVERY DAY Rx Instructions: TAKE 1 Tab daily omeprazole 40 mg capsule,delayed release(DR/EC) 40 mg PO BID Qty: 180 3RF (DME) Disabled Parking See Rx Instructions .ROUTE .MEDSUPPLY Qty: 1 0RF Rx Instructions: I find this patient to be medical disabled and qualified for Disabled Parking as indicated, and signed, on the and the Accompanying Disabled Parking Application for Individuals. lidocaine 1.8 % adhesive patch,medicated 2 patch topical DAILY Qty: 30 2RF Rx Instructions: leave on most painful area for up to 12 hrs tramadol 50 mg tablet 50 mg PO TID PRN (Reason: pain) Qty: 90 0RF ferumoxytol [Feraheme] 510 mg/17 mL (30 mg/mL) solution 510 mg IV Q3D Rx Instructions: administer at a rate of up to 1 mL /sec (30 mg /sec ) sodium,potassium,mag sulfates [Suprep Bowel Prep Kit] 17.5-3.13-1.6 gram recon soln See Rx Instructions PO .COMPLEX Qty: 354 0RF Rx Instructions: take as directed by Physician 2 units O+ blood 2 unit IV ONCE Qty: 2 0RF Rx Instructions: 2 units O+ blood to be transfused IV, each unit to infuse over 1-2 hours with 1 liter normal saline. lidocaine 5 % adhesive patch,medicated 1 patch topical DAILY Qty: 15 2RF Rx Instructions: leave on most painful area for up to 12 hrs Referrals: Karen Jackson MD [Primary Care Provider] - Stand Alone Forms: Patient Portal/API
[2023-06-03] MEDS: SODIUM CHLORIDE 0.9% 1,000 ML 1000 ML IV ×2 (17:49→19:15)
[2023-06-03 18:03] LABS: Alanine Aminotransferase 47 IU/L (<35); Albumin 3.5 g/dL (3.5-5.0); Alkaline Phosphatase 86 U/L (38-126); Aspartate Aminotransferase 37 IU/L (14-36); BUN Creatinine Ratio 9.4 (6-22); Bilirubin Total 0.7 mg/dL (0.2-1.3); Blood Urea Nitrogen 16 mg/dL (7-17); Carbon Dioxide 26 mmol/L (22-32); Chloride 97 mmol/L (98-107); Estimated Glomerular Filt Rate 35 mL/min (>60); Glucose 146 mg/dL (70-100); HEMOLYSIS < 15 (0-50); Potassium 3.7 mmol/L (3.4-5.1); Sodium 140 mmol/L (137-145)
[2023-06-03 18:08] LABS: Globulin 7.50001 g/dL (1.7-4.1)
[2023-06-03 18:10] LABS: Calcium 13.3 mg/dL (8.4-10.2)
[2023-06-03 18:11] LABS: Total Protein 11.7 g/dL (6.3-8.2)
[2023-06-03 18:13] LABS: Add Manual Diff / Slide Review NO; Basophils Absolute Auto 0 /uL (0-100); Basophils Percent Auto 0.6 % (0-2); Eosinophils Absolute Auto 100 /uL (0-450); Eosinophils Percent Auto 1.2 % (2-4); Hematocrit 27.4 % (36-46); Hemoglobin 9.3 g/dL (12.0-16.0); Lymphocytes Absolute Auto 2100 /uL (1100-4500); Lymphocytes Percent Auto 40.6 % (25-40); Mean Corpuscular HGB Conc 33.9 % (30-36); Mean Corpuscular Hemoglobin 29.1 PG (26-34); Mean Corpuscular Volume 85.8 fL (80-100); Monocytes Absolute Auto 400 /uL (0-900); Monocytes Percent Auto 8.4 % (3-14); Neutrophils Absolute Auto 2500 /uL (1500-7000); Neutrophils Percent Auto 49.2 % (50-75); Platelet Count 62 X10^3/uL (150-400); Red Cell Distribution Width 22.7 % (11.6-14.8); White Blood Cell Count 5.1 X10^3/uL (4.5-11.0)
[2023-06-03 18:49] LABS: Magnesium 2.4 mg/dL (1.6-2.3)
[2023-06-03 19:20] LABS: Rouleaux 2+
[2023-06-03 19:21] LABS: Anisocytosis 2+
[2023-06-03] MEDS: CALCITONIN,SALMON 400 UNITS/2 ML MDV IM (19:39)
[2023-06-03] MEDS: ONDANSETRON 4 MG/2 ML INJ IV (20:20)
== END 2023-06-03 21:11 | disposition home or self-care (01) ==
PROVIDERS: Emergency Provider Emergency Medicine; PCP Family Medicine
DX: E83.52 Hypercalcemia (principal)
CPT/HCPCS: 36415; 80053; 83735; 85025; 93005; 96361; 96372; 96374; 99284; J0630; J2405

== ENCOUNTER → 2023-10-18 15:56 | Outpatient (CLI) | payer OTHER, SELFPAY ==
[2023-10-18 17:47] LABS: Hemoglobin A1C% w Est Avg Glu < 4.0 % (4.0-6.0)
== END ==
PROVIDERS: PCP Family Medicine; Referring Provider Family Medicine; Visit Provider Family Medicine
DX: E11.9 Type 2 diabetes mellitus without complications (principal)
CPT/HCPCS: 36415; 83036

== ENCOUNTER → 2024-05-29 15:49 | Outpatient (CLI) | payer OTHER, SELFPAY ==
--- NOTE | 2024-05-29 15:50 | DI.US.S_ITS ---
PROCEDURE: US PELVIC COMPLETE INDICATIONS: postmenopausal bleeding TECHNIQUE: Real-time scanning was performed of the pelvic organs, with image documentation. Additional endovaginal scanning was necessary due to incomplete visualization of the adnexal and endometrial structures by transabdominal scanning. COMPARISON: [facility], , US PELVIC COMPLETE, 12/03/2022, 7:52. FINDINGS: Uterus: 6.5 x 3.2 x 4 cm. Endometrium measures 3 mm which is within normal limits. Trace endocervical fluid. Ovaries: Nonenlarged ovaries bilaterally measuring 1 cc. Other: No pathologic free abdominal or pelvic fluid. IMPRESSION: There is trace endocervical fluid. Endometrium measures 3 mm, within normal limits. Dictated by: Chava Rosas M.D. on 05/29/2024 at 19:17 Approved by: Chava Rosas M.D. on 05/29/2024 at 19:18
--- NOTE | 2024-05-29 15:50 | DI.MG.S_ITS ---
BILATERAL DIGITAL SCREENING MAMMOGRAM 3D/2D WITH CAD: 05/29/2024 CLINICAL: Routine screening. Comparison is made to exams dated: 05/20/2023 mammogram, 05/09/2022 mammogram, 05/02/2021 mammogram, 04/25/2020 mammogram, 03/25/2019 mammogram, and 03/22/2018 mammogram - [facility]. There are scattered areas of fibroglandular density (category b / 25%-50% glandular tissue). Current study was also evaluated with a Computer Aided Detection (CAD) system. There is a biopsy clip in the left breast. No significant masses, calcifications, or other findings are seen in either breast. There has been no significant interval change. IMPRESSION: NEGATIVE There is no mammographic evidence of malignancy. A 1 year screening mammogram is recommended. Based on the Tyrer Cuzick model (a risk assessment model) the patient's lifetime risk is 10.5% and her 10 year risk is 3.9%. According to the ACR, ACS, and NCCN guidelines, an annual breast MRI exam along with mammogram is recommended if the patient's lifetime risk is 20% or greater. This exam was interpreted at Station ID: [id number]. NOTE: For mammograms, a report in lay terms will be sent to the patient. Approximately 15% of breast malignancies will not be visualized mammographically. In the management of a palpable breast mass, a negative mammogram must not discourage biopsy of a clinically suspicious lesion. Electronically Signed By: Liliane Puentes M.D., Ph.D. myrna/vish:06/01/2024 09:47:50 letter sent: Normal Exam ACR BI-RADS Category 1: Negative
== END ==
LOC: MAMMO 15:49
PROVIDERS: PCP Family Medicine; Referring Provider Family Medicine; Visit Provider Family Medicine
DX: N95.0 Postmenopausal bleeding (principal)
CPT/HCPCS: 76830; 76856; 77063; 77067